=== PATIENT | male | born 1960 | race Caucasian/White ===

== ENCOUNTER 2017-03-11 01:16 | Inpatient (IN) | payer OTHER ==
[2017-03-11] MEDS ORDERED: Nitroglycerin 50mg/D5W Premix 50 MG/250 ML INFUS..BTL IV PRN (06:19)
[2017-03-11] MEDS ORDERED: Albuterol/Ipratropium Neb 3 ML AERS HHN PRN (07:00)
[2017-03-11 07:22] VITALS: BP 151/97
[2017-03-11] MEDS ORDERED: Albuterol Nebulizer 2.5mg/3mL HHN PRN (08:07)
[2017-03-11] MEDS ORDERED: guaiFENesin 200 MG/10 ML UDC PO PRN (08:07)
[2017-03-11] MEDS ORDERED: Morphine Sulfate 2 mg/mL 1mL Syr IVP PRN (08:07)
[2017-03-11] MEDS ORDERED: Ipratropium Neb 0.5 mg/2.5 mL UD IH PRN (08:07)
[2017-03-11] MEDS ORDERED: Maalox 30 mL Cup PO PRN (08:11)
[2017-03-11 08:17] LABS: HEMATOCRIT 42.3 % (41.0-60); HEMOGLOBIN 13.4 gm/dL (12-16); MEAN CELL VOLUME 81.6 fl (80-99); MEAN CORPUSCULAR HEMOGLOBIN 25.8 pg (26.0-30.0); MEAN CORPUSCULAR HGB CONC 31.6 pg (28.0-36.0); MEAN PLATELET VOLUME 9.6 fl; NEUTROPHILE ABSOLUTE 10.2 Th/cmm (1.8-8.0); RED BLOOD COUNT 5.19 Mil/cmm (4.30-5.70); RED CELL DISTRIBUTION WIDTH 13.6 % (11.5-20.0)
[2017-03-11 08:21] LABS: PLATELET COUNT 298 Th/cmm (150-400)
[2017-03-11 08:28] LABS: BUN - UREA NITROGEN 16 mg/dL (7-25); BUN/CREATININE RATIO 22.9; CALCIUM SERUM 9.2 mg/dL (8.6-10.3); CARBON DIOXIDE 33.5 mEq/L (21.0-31.0); CHLORIDE 97 mEq/L (98-107); CREATININE - SERUM 0.7 mg/dL (0.7-1.3); GLUCOSE 313 mg/dL (70-105); POTASSIUM SERUM 4.5 mEq/L (3.5-5.1); SODIUM SERUM 134 mEq/L (136-145)
[2017-03-11 08:37] LABS: TOTAL CELLS COUNTED 100
[2017-03-11 08:38] LABS: BAND NEUTROPHILE 4 % (0-10); NEUTROPHILS 86 % (40-80)
[2017-03-11 08:42] LABS: ALB/GLOB RATIO 1.4 (1.0-1.8); ALKALINE PHOSPHATASE 88 U/L (34-104); ANION GAP 9.6 (7.0-16.0); BILIRUBIN,TOTAL 0.8 mg/dL (0.3-1.0); BUN - UREA NITROGEN 16 mg/dL (7-25); BUN/CREATININE RATIO 22.9; CALCIUM SERUM 9.2 mg/dL (8.6-10.3); CARBON DIOXIDE 32.8 mEq/L (21.0-31.0); CHLORIDE 96 mEq/L (98-107); CREATININE - SERUM 0.7 mg/dL (0.7-1.3); GLUCOSE 310 mg/dL (70-105); MAGNESIUM 1.8 mg/dL (1.9-2.7); POTASSIUM SERUM 4.4 mEq/L (3.5-5.1); SGOT 18 U/L (13-39); SGPT/ALT 32 U/L (7-52); SODIUM SERUM 134 mEq/L (136-145)
[2017-03-11] MEDS: Potassium Chloride 10 mEq ER Tab PO SCH ×2 (09:08→16:57)
--- NOTE | 2017-03-11 09:58 | Diagnostic Imaging Report ---
Portable chest x-ray HISTORY: Shortness of breath The heart is enlarged. No focal pulmonary processes. No hilar or mediastinal abnormalities. IMPRESSION: 1. Cardiomegaly 2. No focal pulmonary processes
[2017-03-11 10:06] LABS: INR 1.05 (0.5-1.4); PROTHROMBIN TIME (TEST) 10.9 SECONDS (9.5-11.5)
--- NOTE | 2017-03-11 10:49 | Internal Medicine Prog Note ---
Internal Medicine Subjective - Subjective Service Date: 03/11/17 ([id number] [facility] ) Internal Medicine Objective - Results Result Diagrams: 03/11/17 07:55 03/11/17 08:06 Recent Labs: Laboratory Last Values WBC 11.0 Th/cmm (4.8-10.8) H D 03/11/17 07:55 RBC 5.19 Mil/cmm (4.30-5.70) 03/11/17 07:55 Hgb 13.4 gm/dL (12-16) 03/11/17 07:55 Hct 42.3 % (41.0-60) 03/11/17 07:55 MCV 81.6 fl (80-99) 03/11/17 07:55 MCH 25.8 pg (26.0-30.0) L 03/11/17 07:55 MCHC Differential 31.6 pg (28.0-36.0) 03/11/17 07:55 RDW 13.6 % (11.5-20.0) 03/11/17 07:55 Plt Count 298 Th/cmm (150-400) D 03/11/17 07:55 MPV 9.6 fl 03/11/17 07:55 Band Neutrophils % 4 % (0-10) 03/11/17 07:55 Neutrophils (Manual) 86 % (40-80) H 03/11/17 07:55 Lymphocytes 7 % (20-50) L 03/11/17 07:55 Monocytes 3 % (2-10) 03/11/17 07:55 PT 10.9 SECONDS (9.5-11.5) 03/11/17 08:07 INR 1.05 (0.5-1.4) 03/11/17 08:07 PTT (Actin FS) 24.7 SECONDS (26.0-38.0) L 03/11/17 08:07 Sodium 134 mEq/L (136-145) L 03/11/17 08:06 Potassium 4.4 mEq/L (3.5-5.1) 03/11/17 08:06 Chloride 96 mEq/L (98-107) L 03/11/17 08:06 Carbon Dioxide 32.8 mEq/L (21.0-31.0) H 03/11/17 08:06 Anion Gap 9.6 (7.0-16.0) 03/11/17 08:06 BUN 16 mg/dL (7-25) 03/11/17 08:06 Creatinine 0.7 mg/dL (0.7-1.3) 03/11/17 08:06 Est GFR ( Amer) > 60.0 ml/min (>90) 03/11/17 08:06 Est GFR (Non-Af Amer) > 60.0 ml/min 03/11/17 08:06 BUN/Creatinine Ratio 22.9 03/11/17 08:06 Glucose 310 mg/dL (70-105) H 03/11/17 08:06 Hemoglobin A1c % 8.1 % (4.0-6.0) H 03/11/17 08:06 Calcium 9.2 mg/dL (8.6-10.3) 03/11/17 08:06 Magnesium 1.8 mg/dL (1.9-2.7) L 03/11/17 08:06 Total Bilirubin 0.8 mg/dL (0.3-1.0) 03/11/17 08:06 AST 18 U/L (13-39) 03/11/17 08:06 ALT 32 U/L (7-52) 03/11/17 08:06 Alkaline Phosphatase 88 U/L (34-104) 03/11/17 08:06 Troponin I 0.05 ng/mL (0.01-0.05) 03/11/17 07:55 B-Natriuretic Peptide 1110.0 pg/mL (5.0-100.0) H 03/11/17 07:55 Total Protein 6.6 gm/dL (6.0-8.3) 03/11/17 08:06 Albumin 3.8 gm/dL (4.2-5.5) L 03/11/17 08:06 Globulin 2.8 gm/dL 03/11/17 08:06 Albumin/Globulin Ratio 1.4 (1.0-1.8) 03/11/17 08:06 TSH 0.47 uIU/ml (0.34-5.60) 03/11/17 08:07 - Physical Exam Vitals and I&O: Vital Signs Temp 97.6 F 03/11/17 08:00 Pulse 109 03/11/17 10:33 Resp 40 03/11/17 10:00 BP 160/104 03/11/17 10:33 Pulse Ox 97 03/11/17 10:00 Intake & Output 03/10/17 03/11/17 03/11/17 18:59 06:59 18:59 Other: Stool Characteristics Soft Formed Active Medications: Current Medications Acetaminophen (Tylenol) 650 mg PO Q4H PRN PRN Reason: Pain Or Fever above 101F Stop: 05/10/17 08:06 Al Hydrox/Mg Hydrox/Simethicone (Maalox) 30 ml PO Q6H PRN PRN Reason: Dyspepsia Stop: 05/10/17 08:10 Albuterol Sulfate (Albuterol 2.5mg/3ml Neb Ud) 2.5 mg HHN Q2HRT PRN PRN Reason: Shortness of Breath or Wheeze Stop: 05/10/17 08:06 Albuterol/Ipratropium (Duoneb Neb) 3 ml HHN Q4H PRN PRN Reason: SOB/WHEEZING Stop: 03/14/17 07:00 Aspirin (Ecotrin) 81 mg PO DAILY [facility] Stop: 05/10/17 08:59 Last Admin: 03/11/17 09:08 Dose: 81 mg Furosemide (Lasix) 40 mg IVP Q12H OSM[facility] Stop: 05/10/17 08:59 Last Admin: 03/11/17 09:08 Dose: 40 mg Guaifenesin (Robitussin) 200 mg PO Q4HR PRN PRN Reason: Cough or Congestion Stop: 05/10/17 08:06 Heparin Sodium (Porcine) (Heparin) 5,000 units SUBQ Q12HR O[facility] Stop: 05/10/17 08:59 Last Admin: 03/11/17 09:08 Dose: 5,000 units Nitroglycerin/Dextrose (Nitroglycerin 50mg/Dextrose 5% Premix) 50 mg in 250 mls @ 6 mls/hr IV TITR PRN; Protocol; 20 MCG/MIN PRN Reason: TO KEEP SBP < 140 Stop: 05/10/17 06:18 Insulin Aspart (Novolog) 0 units SUBQ ACHS OSMIN PRN Reason: Protocol Stop: 05/10/17 11:29 Ipratropium [place] (Atrovent Neb 0.5mg/2.5ml) 0.5 mg IH Q2HRT PRN PRN Reason: Shortness of Breath or Wheeze Stop: 05/10/17 08:06 Lisinopril (Zestril) 10 mg PO DAILY [facility] Stop: 05/10/17 08:59 Last Admin: 03/11/17 10:33 Dose: 10 mg Methylprednisolone Sodium Succinate (Solu-Medrol) 80 mg IVP Q8HR [facility] Stop: 05/10/17 12:59 Metoprolol Tartrate (Lopressor) 50 mg PO BID [facility] Stop: 05/10/17 16:59 Morphine Sulfate (Morphine) 2 mg IVP Q4H PRN PRN Reason: Pain (Severe) Stop: 05/10/17 08:06 Nitroglycerin (Nitrostat) 0.4 mg SL Q5MIN PRN PRN Reason: Chest Pain Stop: 05/10/17 08:06 Ondansetron HCl (Zofran) 4 mg IV Q8H PRN PRN Reason: Nausea / Vomiting Stop: 05/10/17 08:06 Potassium Chloride (Klor-Con) 10 meq PO BID [facility] Stop: 05/10/17 08:59 Last Admin: 03/11/17 09:08 Dose: 10 meq Simvastatin (Zocor) 10 mg PO DAILY [facility] PRN Reason: Protocol Stop: 05/10/17 08:59 Last Admin: 03/11/17 09:08 Dose: 10 mg Zolpidem Tartrate (Ambien) 10 mg PO HS PRN PRN Reason: Insomnia Stop: 05/10/17 08:06 Internal Medicine Assmt/Plan - Assessment Assessment: acute CHF exacerbation acute chest pain tobacco abuse mild protein calorie malnutrition hyponatremia dm-2 hyperlipidemia
[2017-03-11] MEDS: INSULIN ASPART, RECOMBINANT 100 UNITS/ML SUBQ SCH ×3 (11:47→21:24)
[2017-03-11] MEDS: NITROGLYCERIN OINT 2% 1 INCH PACKET TP SCH ×2 (11:47→17:00)
--- NOTE | 2017-03-11 13:36 | History & Physical ---
ADMIT DATE: 03/11/2017 CHIEF COMPLAINT: Shortness of breath and chest pain. HISTORY OF PRESENT ILLNESS: This is a 56-year-old male who is a direct admission from [facility]. According to the patient, he has been having intermittent shortness of breath for a course of 6 months. Just last night, the patient states that his shortness of breath and chest pain was unbearable and for this reason, the patient was brought to [place]. In the ER at [place], the patient was receiving nitroglycerin drip. The patient had a series of troponin and it was a bit elevated at 0.06. The patient also states that he has been having bilateral leg cramping for some time. Upon examination, the patient denies any chest pain or any shortness of breath. For continuation of care, the patient is now here admitted to [facility]. The patient denies any history of congestive heart failure. PAST MEDICAL HISTORY: Hypertension, hyperlipidemia, and type 2 diabetes. SURGICAL HISTORY: None per patient. ALLERGIES: No drug allergies. MEDICATIONS: Albuterol, atenolol, lisinopril, prednisone, and simvastatin. SOCIAL HISTORY: The patient smokes half a pack per day. Denies any illicit drug use. The patient drinks alcohol occasionally. REVIEW OF SYSTEMS: GENERAL: Denies any fevers or any chills. CARDIOVASCULAR: Denies chest pain at this time. GASTROINTESTINAL: Denies nausea, vomiting, or abdominal pain. GENITOURINARY: Denies increased frequency or dysuria. NEUROLOGIC: No headache, seizures, or syncope. All other systems are reviewed by me and are negative. PHYSICAL EXAMINATION: GENERAL: The patient is well developed, well nourished, and in no acute distress. VITAL SIGNS: Temperature 97.6, heart rate 118, blood pressure 180/28, respirations 24, and O2 97%. HEENT: Head is normocephalic and atraumatic. NECK: Supple. No mass. LUNGS: Clear bilaterally. HEART: Regular rhythm. ABDOMEN: Soft and nontender. LABORATORY DATA: WBC 11.0, H and H 13.4 and 42.3, and platelet of 298. Sodium 134, potassium 4.4, chloride 96, CO2 32.8, BUN 16, and creatinine 0.7. BNP of 1110 and albumin of 3.8. DIAGNOSTIC STUDIES: The patient had a chest x-ray done. Impression is no active disease, cardiomegaly. ASSESSMENT: Acute congestive heart failure exacerbation, hypertension, diabetes, obesity, tobacco abuse, hyponatremia, and mild protein-calorie malnutrition. PLAN: The patient to be admitted to the ICU unit. We will get a 2D echocardiogram. We will have a dining room host on the case. We will wean patient off the nitroglycerin drip and have patient on cardiac diet. We will have dietary consult for patient for diet education. Keep patient on IV Lasix. We will add Norvasc into the patient's medications. We will continue to follow this patient. JOB# [id number]
[2017-03-11] MEDS ORDERED: Mag Sulfate 2gm/50mL Premix 2 GM/50 ML BAG IV ONE (14:58)
[2017-03-11 20:42] LABS: URINE BILIRUBIN NEGATIVE (NEGATIVE); URINE BLOOD NEGATIVE (NEGATIVE); URINE GLUCOSE (UA) >=1000 mg/dL (NEGATIVE); URINE KETONE TRACE mg/dL (NEGATIVE); URINE PROTEIN NEGATIVE (NEGATIVE); URINE UROBILINOGEN 0.2 E.U./dL (0.2 - 1.0)
[2017-03-11 20:54] LABS: URINE BACTERIA NONE SEEN /hpf (NONE SEEN); URINE COLOR YELLOW; URINE EPITHELIAL CELLS NONE SEEN /lpf (FEW); URINE RBC NONE SEEN /hpf (0-5); URINE WBC NONE SEEN /hpf (0-5)
--- NOTE | 2017-03-11 21:43 | Consultation ---
DATE OF CONSULTATION: 03/11/2017 PATIENT OF: Dr. Winn. HISTORY OF PRESENT ILLNESS: This is a 56-year-old old male patient who had been complaining of chest pain, shortness of breath. The patient was taken to [facility] where stabilized and transferred to [facility] for insurance reasons. PAST MEDICAL HISTORY: Congestive heart failure, systolic dysfunction, cardiomyopathy, hypertension, diabetes mellitus type 2. FAMILY HISTORY: Unremarkable. SOCIAL HISTORY: No history of smoking, alcohol abuse at the present time. ALLERGIES: None. PHYSICAL EXAMINATION: VITAL SIGNS: Blood pressure 190/100, pulse 70, respirations 20. HEAD: Normocephalic. No lumps or bumps. EYES: Pupils equal, reactive to light. Fundi show AV nicking, sclerae white, conjunctivae pink. NECK: Carotid 2+. Normal upstroke. JVD 10 cm above sternal angle. Thyroid not palpable. Lymph nodes not palpable. CHEST: Shows increased AP diameter. No kyphosis, scoliosis. LUNGS: Bilateral rales. Decreased breath sounds in both the bases. HEART: PMI sixth intercostal space, bilateral to midclavicular line. S1, S2, S3, S4, soft systolic murmur. ABDOMEN: Soft. Liver, spleen not palpable. Hepatojugular reflux positive. Bowel sounds active. RECTAL: Deferred. EXTREMITIES: Peripheral pulses 2+. No pedal edema. CLINICAL IMPRESSION: Congestive heart failure; systolic dysfunction; acute cardiomyopathy, ischemic; uncontrolled hypertension; diabetes mellitus type 2; hypokalemia. PLAN: Start the patient on diuretics preload-afterload reduction. The patient had echocardiogram, which showed ejection fraction of 25%. Left ventricular hypertrophy, left atrial enlargement, mild mitral regurgitation and tricuspid regurgitation. Continue the patient on diuretics, preload afterload reduction. The patient's condition discussed with family at bedside. JOB# [id number]
[2017-03-12] MEDS: NITROGLYCERIN OINT 2% 1 INCH PACKET TP SCH ×4 (00:04→18:08)
[2017-03-12 04:44] LABS: HEMATOCRIT 41.1 % (41.0-60); HEMOGLOBIN 13.3 gm/dL (12-16); MEAN CELL VOLUME 81.5 fl (80-99); MEAN CORPUSCULAR HEMOGLOBIN 26.4 pg (26.0-30.0); MEAN CORPUSCULAR HGB CONC 32.4 pg (28.0-36.0); MEAN PLATELET VOLUME 9.4 fl; NEUTROPHILE ABSOLUTE 18.3 Th/cmm (1.8-8.0); PLATELET COUNT 320 Th/cmm (150-400); RED BLOOD COUNT 5.04 Mil/cmm (4.30-5.70); RED CELL DISTRIBUTION WIDTH 13.4 % (11.5-20.0)
[2017-03-12 04:52] LABS: WHITE BLOOD COUNT 19.4 Th/cmm (4.8-10.8)
[2017-03-12 05:00] LABS: ANION GAP 7.1 (7.0-16.0); BUN - UREA NITROGEN 26 mg/dL (7-25); BUN/CREATININE RATIO 37.1; CALCIUM SERUM 8.9 mg/dL (8.6-10.3); CARBON DIOXIDE 36.7 mEq/L (21.0-31.0); CHLORIDE 96 mEq/L (98-107); CREATININE - SERUM 0.7 mg/dL (0.7-1.3); MAGNESIUM 2.2 mg/dL (1.9-2.7); POTASSIUM SERUM 4.8 mEq/L (3.5-5.1); SODIUM SERUM 135 mEq/L (136-145)
[2017-03-12 05:05] LABS: TOTAL CELLS COUNTED 100
[2017-03-12 05:06] LABS: BAND NEUTROPHILE 3 % (0-10); NEUTROPHILS 94 % (40-80)
[2017-03-12 05:07] LABS: GLUCOSE 309 mg/dL (70-105)
[2017-03-12] MEDS: INSULIN ASPART, RECOMBINANT 100 UNITS/ML SUBQ SCH ×4 (06:42→20:46)
[2017-03-12] MEDS: Potassium Chloride 10 mEq ER Tab PO SCH ×2 (08:38→17:43)
--- NOTE | 2017-03-12 09:05 | Diagnostic Imaging Report ---
CHEST X-RAY: AP view INDICATION: CHF COMPARISON: 03/11/2017 FINDINGS: Exam is limited due to body habitus. Left lower lung zone hazy density is noted. There is also blunting of the right costophrenic angle. Cardiomegaly is noted. IMPRESSION: Left lower lung zone hazy density due to a small layering left effusion. Pneumonia of the left lung base cannot be excluded. Probable small right effusion. No radiographic evidence of [place]olia CHF. Cardiomegaly.
--- NOTE | 2017-03-12 12:26 | Internal Medicine Prog Note ---
Internal Medicine Subjective - Subjective Service Date: 03/12/17 (denies any chest pain ) Patient seen and examined:: with staff Patient is:: awake Per staff patient has:: tolerating meds Internal Medicine Objective - Results Result Diagrams: 03/12/17 04:24 03/12/17 04:24 Recent Labs: Laboratory Last Values WBC 19.4 Th/cmm (4.8-10.8) H D 03/12/17 04:24 RBC 5.04 Mil/cmm (4.30-5.70) 03/12/17 04:24 Hgb 13.3 gm/dL (12-16) 03/12/17 04:24 Hct 41.1 % (41.0-60) 03/12/17 04:24 MCV 81.5 fl (80-99) 03/12/17 04:24 MCH 26.4 pg (26.0-30.0) 03/12/17 04:24 MCHC Differential 32.4 pg (28.0-36.0) 03/12/17 04:24 RDW 13.4 % (11.5-20.0) 03/12/17 04:24 Plt Count 320 Th/cmm (150-400) 03/12/17 04:24 MPV 9.4 fl 03/12/17 04:24 Neutrophils % DRESSED POULTRY GRADER 03/12/17 04:24 Band Neutrophils % 3 % (0-10) 03/12/17 04:24 Lymphocytes % DRESSED POULTRY GRADER 03/12/17 04:24 Monocytes % DRESSED POULTRY GRADER 03/12/17 04:24 Eosinophils % DRESSED POULTRY GRADER 03/12/17 04:24 Basophils % DRESSED POULTRY GRADER 03/12/17 04:24 Neutrophils (Manual) 94 % (40-80) H 03/12/17 04:24 Lymphocytes 3 % (20-50) L 03/12/17 04:24 Monocytes 3 % (2-10) 03/11/17 07:55 PT 10.9 SECONDS (9.5-11.5) 03/11/17 08:07 INR 1.05 (0.5-1.4) 03/11/17 08:07 PTT (Actin FS) 24.7 SECONDS (26.0-38.0) L 03/11/17 08:07 Sodium 135 mEq/L (136-145) L 03/12/17 04:24 Potassium 4.8 mEq/L (3.5-5.1) 03/12/17 04:24 Chloride 96 mEq/L (98-107) L 03/12/17 04:24 Carbon Dioxide 36.7 mEq/L (21.0-31.0) H 03/12/17 04:24 Anion Gap 7.1 (7.0-16.0) 03/12/17 04:24 BUN 26 mg/dL (7-25) H 03/12/17 04:24 Creatinine 0.7 mg/dL (0.7-1.3) 03/12/17 04:24 Est GFR ( Amer) > 60.0 ml/min (>90) 03/12/17 04:24 Est GFR (Non-Af Amer) > 60.0 ml/min 03/12/17 04:24 BUN/Creatinine Ratio 37.1 03/12/17 04:24 Glucose 309 mg/dL (70-105) H D 03/12/17 04:24 POC Glucose 439 MG/DL (70 - 105) H 03/12/17 11:33 Hemoglobin A1c % 8.1 % (4.0-6.0) H 03/11/17 08:06 Calcium 8.9 mg/dL (8.6-10.3) 03/12/17 04:24 Magnesium 2.2 mg/dL (1.9-2.7) 03/12/17 04:24 Total Bilirubin 0.8 mg/dL (0.3-1.0) 03/11/17 08:06 AST 18 U/L (13-39) 03/11/17 08:06 ALT 32 U/L (7-52) 03/11/17 08:06 Alkaline Phosphatase 88 U/L (34-104) 03/11/17 08:06 Troponin I 0.05 ng/mL (0.01-0.05) 03/11/17 07:55 B-Natriuretic Peptide 1110.0 pg/mL (5.0-100.0) H 03/12/17 04:24 Total Protein 6.6 gm/dL (6.0-8.3) 03/11/17 08:06 Albumin 3.8 gm/dL (4.2-5.5) L 03/11/17 08:06 Globulin 2.8 gm/dL 03/11/17 08:06 Albumin/Globulin Ratio 1.4 (1.0-1.8) 03/11/17 08:06 TSH 0.47 uIU/ml (0.34-5.60) 03/11/17 08:07 Urine Source CLEAN C 03/11/17 19:15 Urine Color YELLOW 03/11/17 19:15 Urine Clarity CLEAR (CLEAR) 03/11/17 19:15 Urine pH 6.0 (4.6 - 8.0) 03/11/17 19:15 Ur Specific [place] 1.015 (1.005-1.030) 03/11/17 19:15 Urine Protein NEGATIVE mg/dL (NEGATIVE) 03/11/17 19:15 Urine Glucose (UA) >=1000 mg/dL (NEGATIVE) H 03/11/17 19:15 Urine Ketones TRACE mg/dL (NEGATIVE) 03/11/17 19:15 Urine Blood NEGATIVE (NEGATIVE) 03/11/17 19:15 Urine Nitrate NEGATIVE (NEGATIVE) 03/11/17 19:15 Urine Bilirubin NEGATIVE (NEGATIVE) 03/11/17 19:15 Urine Urobilinogen 0.2 E.U./dL (0.2 - 1.0) 03/11/17 19:15 Ur Leukocyte Esterase NEGATIVE (NEGATIVE) 03/11/17 19:15 Urine RBC NONE SEEN /hpf (0-5) 03/11/17 19:15 Urine WBC NONE SEEN /hpf (0-5) 03/11/17 19:15 Ur Epithelial Cells NONE SEEN /lpf (FEW) 03/11/17 19:15 Urine Bacteria NONE SEEN /hpf (NONE SEEN) 03/11/17 19:15 - Physical Exam Vitals and I&O: Vital Signs Temp 97.9 F 03/12/17 12:00 Pulse 87 03/12/17 12:00 Resp 23 03/12/17 12:00 BP 133/82 03/12/17 12:00 Pulse Ox 95 03/12/17 12:00 Intake & Output 03/11/17 03/12/17 03/12/17 18:59 06:59 18:59 Intake Total 1300 200 Output Total 1750 1900 0 Balance -450 -1700 0 Weight (lbs) 176 lb 175 lb 175 lb Intake: Intake, IV Amount 50 Mag Sulfate 2gm/50mL 50 Premix 2 gm In 50 ml @ 25 mls/hr IV X1 ONE Rx#: [id number] Oral 1250 200 Output: Urine 1750 1900 Stool 0 Other: # Voids 0 # Bowel Movements 0 0 Stool Characteristics Formed Brown Active Medications: Current Medications Acetaminophen (Tylenol) 650 mg PO Q4H PRN PRN Reason: Pain Or Fever above 101F Stop: 05/10/17 08:06 Al Hydrox/Mg Hydrox/Simethicone (Maalox) 30 ml PO Q6H PRN PRN Reason: Dyspepsia Stop: 05/10/17 08:10 Albuterol Sulfate (Albuterol 2.5mg/3ml Neb Ud) 2.5 mg HHN Q2HRT PRN PRN Reason: Shortness of Breath or Wheeze Stop: 05/10/17 08:06 Albuterol/Ipratropium (Duoneb Neb) 3 ml HHN Q4H PRN PRN Reason: SOB/WHEEZING Stop: 03/14/17 07:00 Last Admin: 03/11/17 21:39 Dose: 3 ml Amlodipine Besylate (Norvasc) 10 mg PO DAILY [facility] Stop: 05/11/17 08:59 Last Admin: 03/12/17 08:38 Dose: 10 mg Aspirin (Ecotrin) 81 mg PO DAILY [facility] Stop: 05/10/17 08:59 Last Admin: 03/12/17 08:38 Dose: 81 mg Furosemide (Lasix) 40 mg IVP Q12H O[facility] Stop: 05/10/17 08:59 Last Admin: 03/12/17 08:39 Dose: 40 mg Guaifenesin (Robitussin) 200 mg PO Q4HR PRN PRN Reason: Cough or Congestion Stop: 05/10/17 08:06 Heparin Sodium (Porcine) (Heparin) 5,000 units SUBQ Q12HR [facility] Stop: 05/10/17 08:59 Last Admin: 03/12/17 08:39 Dose: 5,000 units Nitroglycerin/Dextrose (Nitroglycerin 50mg/Dextrose 5% Premix) 50 mg in 250 mls @ 6 mls/hr IV TITR PRN; Protocol; 20 MCG/MIN PRN Reason: TO KEEP SBP < 140 Stop: 05/10/17 06:18 Insulin Aspart (Novolog) 0 units SUBQ ACHS O[facility] PRN Reason: Protocol Stop: 05/10/17 11:29 Last Admin: 03/12/17 11:41 Dose: 10 units Ipratropium [place] (Atrovent Neb 0.5mg/2.5ml) 0.5 mg IH Q2HRT PRN PRN Reason: Shortness of Breath or Wheeze Stop: 05/10/17 08:06 Lisinopril (Zestril) 10 mg PO DAILY [facility] Stop: 05/10/17 08:59 Last Admin: 03/12/17 08:38 Dose: 10 mg Methylprednisolone Sodium Succinate (Solu-Medrol) 80 mg IVP Q8HR [facility] Stop: 05/10/17 12:59 Last Admin: 03/12/17 05:09 Dose: 80 mg Metoprolol Tartrate (Lopressor) 50 mg PO BID [facility] Stop: 05/10/17 16:59 Last Admin: 03/12/17 08:38 Dose: 50 mg Morphine Sulfate (Morphine) 2 mg IVP Q4H PRN PRN Reason: Pain (Severe) Stop: 05/10/17 08:06 Last Admin: 03/12/17 06:39 Dose: 2 mg Nitroglycerin (Nitrostat) 0.4 mg SL Q5MIN PRN PRN Reason: Chest Pain Stop: 05/10/17 08:06 Nitroglycerin (Nitro-Bid) 1 inch TP Q6HR [facility] Stop: 05/10/17 11:59 Last Admin: 03/12/17 11:45 Dose: 1 inch Ondansetron HCl (Zofran) 4 mg IV Q8H PRN PRN Reason: Nausea / Vomiting Stop: 05/10/17 08:06 Potassium Chloride (Klor-Con) 10 meq PO BID [facility] Stop: 05/10/17 08:59 Last Admin: 03/12/17 08:38 Dose: 10 meq Simvastatin (Zocor) 10 mg PO DAILY [facility] PRN Reason: Protocol Stop: 05/10/17 08:59 Last Admin: 03/12/17 08:39 Dose: 10 mg Zolpidem Tartrate (Ambien) 10 mg PO HS PRN PRN Reason: Insomnia Stop: 05/10/17 08:06 General: alert HEENT: NC/AT, PERRLA Neck: Supple Lungs: CTAB Cardiovascular: RRR, Normal S1, Normal S2, without murmur Abdomen: soft, non-tender, non-distended, positive bowel sound Neurological: alert Internal Medicine Assmt/Plan - Assessment Assessment: acute CHF exacerbation leukocytosis acute chest pain tobacco abuse mild protein calorie malnutrition hyponatremia dm-2 hyperlipidemia - Plan Plan: continue with diuretics smoking cessation monitor glucose taper down solumedrol cardiology follow up am labs continue current plan of care Nutritional Asmnt/Malnutr-PDOC - Dietary Evaluation Malnutrition Findings (Please click <Entered> for more info): Nutritional Asmnt/Malnutrition Start: 03/11/17 16: 09 Text: Status: Complete Freq: Document 03/11/17 16:09 [email or web address] (Rec: 03/11/17 16:26 [email or web address]) Nutritional Asmnt/Malnutrition Patient General Information Nutritional Screening High Risk Consult Diagnosis acute CHF exacerbation Pertinent Medical Hx/Surgical Hx HTN, hyperlipidemia, DM Subjective Information Consult received for diabetic. Pt seen lying in bed, Ghanaian speaking. Spoke with pt with help of JACKIE paez. Pt reported good appetite, eats well. Per notes, PO intake 100%. Per H7P, pt smokes half a pack /day, drinks alcohol occasionally Current Diet Order/ Nutrition Support cardiac Pertinent Medications lasix, novolog, kcal Pertinent Labs 03/11 Na 134L, K 4.4, Cl 96L, Glu 310H, POC 391-535 since adm A1C 8.1, Alb 3.8 Nutritional Hx/Data Height 5 ft 8 in Height (Calculated Centimeters) 172.7 Current Weight (lbs) 195 lb Weight (Calculated Kilograms) 88.5 Weight (Calculated Grams) 84770.5 Usual body Weight (lbs) 210 % Usual Body Weight 93 [place] Body Weight 140 % [place] Body Weight 139 Body Mass Index (BMI) 29.6 Weight Status Overweight GI Symptoms GI Symptoms None Difficult in: None Food Allergies No Usual diet at home usually 3 meals a day, cooked at home, no diet restrictions. Skin Integrity/Comment: intact Current %PO Good (75-100%) Estimated Nutritional Goals BEE in Kcals: Using Current wt Kcals Calculated 2215kcal (25kcal/kg) Protein: Using Current wt Protein g/k Protein Calculated 88g Fluid: ml 2215 Nutritional Problem 1. Problem Problem altered nutrition related lab values Etiology hx of DM, imbalanced carbohydrates intake Signs/Symptoms: Glu 310H, POC 391-535 since adm A1C 8.1 Malnutrition Alert Protein-Calorie Malnutrition N/A Is there a minimum of two criteria No selected? Query Text:Check all the applicable criteria. A minimum of two criteria are recommended for diagnosis of either severe or non-severe malnutrition. Intervention/Recommendation Comments 1. Modify diet to [facility] 60gm Cardiac diet. Made RN Dagmar aware and updated diet order. 2. Provided nutrition education about [facility] diet, encourged balanced meal, eat adquate vegetables and protein food. Pt showed understand. 3. Monitor PO intake, wt weekly, labs and skin integrity 4. F/U as moderate risk in 3-5 days, 03/14-03/16 Expected Outcomes/Goals Expected Outcomes/Goals 1. PO intake continue to meet at least 75% of nutritional needs. 2. wt stability, skin to remain intact, blood glucose level to improve
[2017-03-12] MEDS: Insulin Detemir 100 units/mL 10mL Vial SUBQ SCH (12:49)
--- NOTE | 2017-03-12 15:38 | Cardiology ---
03/11/[address] Winn. PROCEDURE: Echocardiogram. M-MODE ECHOCARDIOGRAM: Mitral valve, anterior leaflet of mitral valve shows normal excursion, EF velocity. Posterior leaflet of mitral valve shows normal excursion. Left ventricular posterior wall shows increased thickness, normal excursion. Interventricular septum shows increased thickness, normal excursion, hypertrophy of the left ventricle, ejection fraction of 25%. Left atrium enlarged, 4.2 cm. Aortic root shows normal dimension, normal excursion of aortic leaflets. CONCLUSION: Hypertrophy of the left ventricle, cardiomyopathy, ejection fraction of 25%, left atrial enlargement. Doppler study shows prominent A wave consistent with poor compliance of left ventricle, mild mitral regurgitation, and mild tricuspid regurgitation. [facility]# [id number]
[2017-03-12] MEDS: methylPREDNISolone SS 40 mg Vial IVP SCH (20:47)
[2017-03-13 05:01] LABS: HEMATOCRIT 42.7 % (41.0-60); HEMOGLOBIN 13.6 gm/dL (12-16); MEAN CELL VOLUME 82.6 fl (80-99); MEAN CORPUSCULAR HEMOGLOBIN 26.3 pg (26.0-30.0); MEAN CORPUSCULAR HGB CONC 31.8 pg (28.0-36.0); MEAN PLATELET VOLUME 9.5 fl; PLATELET COUNT 321 Th/cmm (150-400); RED BLOOD COUNT 5.16 Mil/cmm (4.30-5.70); RED CELL DISTRIBUTION WIDTH 13.7 % (11.5-20.0)
[2017-03-13 05:10] LABS: ANION GAP 7.4 (7.0-16.0); BUN - UREA NITROGEN 30 mg/dL (7-25); BUN/CREATININE RATIO 42.9; CALCIUM SERUM 8.8 mg/dL (8.6-10.3); CARBON DIOXIDE 36.3 mEq/L (21.0-31.0); CHLORIDE 96 mEq/L (98-107); CREATININE - SERUM 0.7 mg/dL (0.7-1.3); GLUCOSE 228 mg/dL (70-105); POTASSIUM SERUM 4.7 mEq/L (3.5-5.1); SODIUM SERUM 135 mEq/L (136-145)
[2017-03-13 05:25] LABS: WHITE BLOOD COUNT 21.8 Th/cmm (4.8-10.8)
[2017-03-13] MEDS: NITROGLYCERIN OINT 2% 1 INCH PACKET TP SCH ×3 (06:27→13:12)
[2017-03-13] MEDS: INSULIN ASPART, RECOMBINANT 100 UNITS/ML SUBQ SCH ×2 (06:46→12:13)
[2017-03-13 06:48] LABS: TOTAL CELLS COUNTED 100
[2017-03-13 06:49] LABS: BAND NEUTROPHILE 4 % (0-10); NEUTROPHILS 92 % (40-80)
--- NOTE | 2017-03-13 07:58 | Diagnostic Imaging Report ---
Exam: Chest portable HISTORY: Pneumonia. Portable examination of the chest at 0733 hours reviewed the study compared to prior examination of 03/11/2017. Findings. The study demonstrates cardiomegaly. No acute pulmonic infiltrates or effusions are noted. Bony thorax is intact. Mediastinal structures midline. The costophrenic angles are clear. IMPRESSION: Cardiomegaly no acute disease.
[2017-03-13] MEDS: methylPREDNISolone SS 40 mg Vial IVP SCH (08:23)
[2017-03-13] MEDS: Potassium Chloride 10 mEq ER Tab PO SCH (08:24)
[2017-03-13] MEDS: Insulin Detemir 100 units/mL 10mL Vial SUBQ SCH (08:28)
== END 2017-03-13 14:45 | disposition home or self-care (01) | DRG 292 ==
LOC: TELE 04:08 → ICU 04:19 → TELE 03-13 11:29
PROVIDERS: ADMIT Internal Medicine; ATTEND Internal Medicine
PROC: 5A09457 Assistance with Respiratory Ventilation, 24-96 Consecutive Hours, Continuous Positive Airway Pressure (ICD-10-PCS; principal; 2017-03-11)
DX: I11.0 Hypertensive heart disease with heart failure (principal); E44.1 Mild protein-calorie malnutrition; I08.1 Rheumatic disorders of both mitral and tricuspid valves; E87.1 Hypo-osmolality and hyponatremia; E11.9 Type 2 diabetes mellitus without complications; D72.829 Elevated white blood cell count, unspecified; I50.21 Acute systolic (congestive) heart failure; E66.9 Obesity, unspecified; E78.5 Hyperlipidemia, unspecified; F17.210 Nicotine dependence, cigarettes, uncomplicated; R07.89 Other chest pain; I25.5 Ischemic cardiomyopathy; E87.6 Hypokalemia; Z71.6 Tobacco abuse counseling; Z68.28 Body mass index [BMI] 28.0-28.9, adult
CPT/HCPCS: 36415-UA; 71010-TC; 80048-TC; 80053-TC; 81001-TC; 82947-TC; 82948-90; 83036-90; 83735-TC; 83880-TC; 84443-TC; 84484-TC; 85007-TC; 85027-TC; 85610-TC; 93005; 94660; 94760; J0692; J1644; J1815; J1940; J2270; J2920; J2930; J3475; X3904; Z7610

== ENCOUNTER 2017-09-27 02:02 | Inpatient (IN) | payer OTHER ==
[2017-09-27 02:30] LABS: % BASOPHILS 0.3 % (0.0-2.0); % LYMPHOCYTES 15.6 % (20.0-50.0); % MONOCYTES 6.8 % (2.0-10.0); % NEUTROPHILS 76.3 % (40.0-80.0); EOSINOPHILE ABSOLUTE 0.1 Th/cmm (0.1-0.4); HEMATOCRIT 44.5 % (41.0-60); HEMOGLOBIN 14.6 gm/dL (12-16); LYMPHOCYTE ABSOLUTE 2.2 Th/cmm (1.5-3.0); MEAN CORPUSCULAR HEMOGLOBIN 26.6 pg (26.0-30.0); MEAN CORPUSCULAR HGB CONC 32.8 pg (28.0-36.0); PLATELET COUNT 315 Th/cmm (150-400); RED BLOOD COUNT 5.49 Mil/cmm (4.30-5.70); RED CELL DISTRIBUTION WIDTH 12.7 % (11.5-20.0)
[2017-09-27] MEDS ORDERED: NITROGLYCERIN OINT 2% 1 INCH PACKET TP ONE (02:31)
[2017-09-27 02:33] LABS: WHITE BLOOD COUNT 14.3 Th/cmm (4.8-10.8)
[2017-09-27] MEDS ORDERED: NITROGLYCERIN OINT 2% 1 INCH PACKET TP STA (02:33)
[2017-09-27 02:40] LABS: pH 7.36 (7.35-7.45)
--- NOTE | 2017-09-27 02:40 | ED Physician Chart ---
ED Chief Complaint/HPI - Patient Information Date Seen:: 09/27/17 Time Seen:: 02:05 Chief Complaint:: shortness of breath History of Present Illness:: THIS IS A 56 YO MALE HYPERTENSIVE, DIABETIC AND PATIENT PRESENTS WITH SEVERAL DAYS OF SOB AND WAS ADMITTED TO THIS HOSPITAL FOR CHF LAST YEAR. HE SMOKES DAILY AND TAKE METFORMIN FOR HIS DIABETES BUT NOT EATING RIGHT ACCORDING TO HIS DAUGHTER. HE DENIES CHEST PAIN AND ABDOMINAL PAIN. HE ATE [place] [employer] THIS AFTERNOON. Allergies:: Allergies Allergy/AdvReac Type Severity Reaction Status Date / Time No Known Allergies Allergy Verified 09/27/17 02:10 Vitals:: Vital Signs - 8 hr 09/27/17 09/27/17 02:02 02:33 Temp 98.0 F HR 84 RR 30 BP 159/107 158/110 Historian:: Patient, Family Member (DAUGHTER) Review:: Nurse's Note Reviewed, Old Chart Reviewed ED Review of Systems - Review of Systems General/Constitutional: No fever, No chills, No weight loss, No weakness, No diaphoresis, No edema, No loss of appetite Skin: No skin lesions, No rash, No bruising Head: No headache, No light-headedness Eyes: No loss of vision, No pain, No diplopia ENT: No earache, No nasal drainage, No sore throat, No tinnitus Neck: No neck pain, No swelling, No thyromegaly, No stiffness, No mass noted Cardio Vascular: No chest pain, No palpitations, No PND, No orthopnea, No edema Pulmonary: SOB, No cough, No sputum, No wheezing GI: No nausea, No vomiting, No diarrhea, No pain, No melena, No hematochezia, No constipation, No hematemesis G/U: No dysuria, No frequency, No hematuria Musculoskeletal: No bone or joint pain, No back pain, No muscle pain Endocrine: No polyuria, No polydipsia Psychiatric: No prior psych history, No depression, No anxiety, No suicidal ideation Hematopoietic: No bruising, No lymphadenopathy Allergic/Immuno: No urticaria, No angioedema Neurological: No syncope, No focal symptoms, No weakness, No paresthesia, No headache, No seizure, No dizziness, No confusion, No vertigo ED Past Medical History - Past Medical History Obtainable: Yes Past Medical History: HTN, DM, CHF Family History: None Social History: Smoker, No Alcohol, No Drug Use, Employed Surgical History: None Psychiatricy History: None Medication: Reviewed Family Medical History - Family Member Brother History Unknown: Yes Ethnicity: Living Status: Still Living Hx Family Cancer: No Hx Family Coronary Artery Disease: No Hx Family Congestive Heart Failure: Yes Hx Family Hypertension: Yes Hx Family Stroke: No Hx Family Diabetes: Yes Hx Family Seizures: No Hx Family Dementia: No Hx Family AIDS: No Hx Family HIV: No Hx Family COPD: No Hx Family Hepatitis: Yes Hx Family Psychiatric Problems: No Hx Family Tuberculosis: No ED Physical Exam - Physical Examination General/Constitutional: Awake, Well-developed, well-nourished, Alert, No distress, GCS 15, Non-toxic appearing, Ambulatory Head: Atraumatic Eyes: Lids, conjuctiva normal, PERRL, EOMI Skin: Nl inspection, No rash, No skin lesions, No ecchymosis, Well hydrated, No lymphadenopathy ENMT: External ears, nose nl, Nasal exam nl, Lips, teeth, gums nl Neck: Nontender, Full ROM w/o pain, No JVD, No nuchal rigidity, No bruit, No mass, No stridor Respiratory: Nl effort/Exclusion (INCREASE RATE 36 AND LABORED BREATHING BILATERALLY.), Clear to Auscultation, No Wheeze/Rhonchi/Rales Cardio Vascular: RRR (INCREASE RATE 96 AND SINUS), No murmur, gallop, rubs, NL S1 S2 GI: No tenderness/rebounding/guarding, No organomegaly, No hernia, Normal BS's, Nondistended (ABDOMEN IS DISTENDED), No mass/bruits, No McBurney tenderness : No CVA tenderness Extremities: No tenderness or effusion, Full ROM, normal strength in all extremities, No edema, Normal digits & nails Neuro/Psych: Alert/oriented, DTR's symmetric, Normal sensory exam, Normal motor strength, Judgement/insight normal, Mood normal, Normal gait, No focal deficits Misc: Normal back, No paraspinal tenderness ED Labs/Radiology/EKG Results - Lab Results Results: Laboratory Tests 09/27/17 02:20 WBC 14.3 H RBC 5.49 Hgb 14.6 Hct 44.5 MCV 81.0 MCH 26.6 MCHC Differential 32.8 RDW 12.7 Plt Count 315 MPV 9.0 Neutrophils % 76.3 Lymphocytes % 15.6 L Monocytes % 6.8 Eosinophils % 1.0 Basophils % 0.3 Abnormal Lab Results 09/27/17 09/27/17 09/27/17 02:20 02:20 02:20 WBC 14.3 H RBC 5.49 Hgb 14.6 Hct 44.5 MCV 81.0 MCH 26.6 MCHC Differential 32.8 RDW 12.7 Plt Count 315 MPV 9.0 Neutrophils % 76.3 Lymphocytes % 15.6 L Monocytes % 6.8 Eosinophils % 1.0 Basophils % 0.3 PT 10.5 INR 1.01 PTT (Actin FS) 25.4 L Specimen Source Sample Site pH pCO2 pO2 HCO3 Base Excess O2 Saturation Garth Test Vent Rate Inspired O2 Tidal Volume PEEP Pressure (ins/psv/peep) Critical Value Sodium Potassium Chloride Carbon Dioxide Anion Gap BUN Creatinine Est GFR ( Amer) Est GFR (Non-Af Amer) BUN/Creatinine Ratio Glucose Whole Bld Lactic Acid Calcium Total Bilirubin AST ALT Alkaline Phosphatase Troponin I Total Protein Albumin Globulin Albumin/Globulin Ratio Triglycerides Cholesterol LDL Cholesterol Direct HDL Cholesterol TSH Urine Source CLEAN C Urine Color YELLOW Urine Clarity CLEAR Urine pH 6.5 Ur Specific [place] 1.025 Urine Protein 100 H Urine Glucose (UA) NEGATIVE Urine Ketones NEGATIVE Urine Blood NEGATIVE Urine Nitrate NEGATIVE Urine Bilirubin NEGATIVE Urine Urobilinogen 0.2 Ur Leukocyte Esterase NEGATIVE Urine RBC 0-2 H Urine WBC 0-2 Ur Epithelial Cells OCCASIONAL Urine Bacteria FEW Urine Opiates Screen Urine Methadone Screen Ur Barbiturates Screen Ur Tricyclics Screen Ur Phencyclidine Scrn Amphetamines Screen U Methamphetamines Scrn U Benzodiazepines Scrn U Cocaine Metab Screen U Cannabinoids Screen Ethyl Alcohol 09/27/17 09/27/17 09/27/17 02:20 02:20 02:20 WBC RBC Hgb Hct MCV MCH MCHC Differential RDW Plt Count MPV Neutrophils % Lymphocytes % Monocytes % Eosinophils % Basophils % PT INR PTT (Actin FS) Specimen Source Sample Site pH pCO2 pO2 HCO3 Base Excess O2 Saturation Garth Test Vent Rate Inspired O2 Tidal Volume PEEP Pressure (ins/psv/peep) Critical Value Sodium 136 Potassium 4.9 Chloride 99 Carbon Dioxide 31.7 H Anion Gap 10.2 BUN 18 Creatinine 0.7 Est GFR ( Amer) > 60.0 Est GFR (Non-Af Amer) > 60.0 BUN/Creatinine Ratio 25.7 Glucose 261 H Whole Bld Lactic Acid Calcium 8.8 Total Bilirubin 0.7 AST 60 H ALT 90 H Alkaline Phosphatase 144 H Troponin I 0.04 Total Protein 6.4 Albumin 3.9 L Globulin 2.5 Albumin/Globulin Ratio 1.6 Triglycerides 150 Cholesterol 204 H LDL Cholesterol Direct 160 HDL Cholesterol 35 TSH 1.78 Urine Source Urine Color Urine Clarity Urine pH Ur Specific [place] Urine Protein Urine Glucose (UA) Urine Ketones Urine Blood Urine Nitrate Urine Bilirubin Urine Urobilinogen Ur Leukocyte Esterase Urine RBC Urine WBC Ur Epithelial Cells Urine Bacteria Urine Opiates Screen Urine Methadone Screen Ur Barbiturates Screen Ur Tricyclics Screen Ur Phencyclidine Scrn Amphetamines Screen U Methamphetamines Scrn U Benzodiazepines Scrn U Cocaine Metab Screen U Cannabinoids Screen Ethyl Alcohol < 10 09/27/17 09/27/17 09/27/17 02:20 02:20 02:27 WBC RBC Hgb Hct MCV MCH MCHC Differential RDW Plt Count MPV Neutrophils % Lymphocytes % Monocytes % Eosinophils % Basophils % PT INR PTT (Actin FS) Specimen Source ARTERIAL Sample Site RIGHT RADIAL pH 7.36 pCO2 61.0 H* pO2 53.0 L HCO3 30.3 H Base Excess 7.2 H O2 Saturation 86.0 L Garth Test YES Vent Rate N/A Inspired O2 21 Tidal Volume N/A PEEP N/A Pressure (ins/psv/peep) N/A Critical Value J.YUTANCO Sodium Potassium Chloride Carbon Dioxide Anion Gap BUN Creatinine Est GFR ( Amer) Est GFR (Non-Af Amer) BUN/Creatinine Ratio Glucose Whole Bld Lactic Acid 1.19 Calcium Total Bilirubin AST ALT Alkaline Phosphatase Troponin I Total Protein Albumin Globulin Albumin/Globulin Ratio Triglycerides Cholesterol LDL Cholesterol Direct HDL Cholesterol TSH Urine Source Urine Color Urine Clarity Urine pH Ur Specific [place] Urine Protein Urine Glucose (UA) Urine Ketones Urine Blood Urine Nitrate Urine Bilirubin Urine Urobilinogen Ur Leukocyte Esterase Urine RBC Urine WBC Ur Epithelial Cells Urine Bacteria Urine Opiates Screen NEGATIVE Urine Methadone Screen NEGATIVE Ur Barbiturates Screen NEGATIVE Ur Tricyclics Screen NEGATIVE Ur Phencyclidine Scrn NEGATIVE Amphetamines Screen NEGATIVE U Methamphetamines Scrn POSITIVE H U Benzodiazepines Scrn NEGATIVE U Cocaine Metab Screen NEGATIVE U Cannabinoids Screen NEGATIVE Ethyl Alcohol - Radiology Results Results: CHEST X-RAY = CM AND PLUMONARY EDEMA - EKG Interpretations EKG Time:: 02:12 Rate & Rhythm: RATE=81 SINUS [place]: RIGHT AXIS Comments:: NO ECTOPY ED Assessment - Assessment General Assessment: HYPOXEMIA AND CHF WITH HYPERTENSION ED Septic Shock - . Is Septic Shock (SBP<90, OR Lactate>4 mmol\L) present?: No - <6hrs of presentation: Vital Signs: Vital Signs - 8 hr 09/27/17 09/27/17 02:02 02:33 Temp 98.0 F HR 84 RR 30 BP 159/107 158/110 ED Reassessment (Disposition) - Reassessment Reassessment:: CHF Reassessment Condition:: Improved - Diagnosis Diagnosis:: ACUTE CONGESTIVE HEART FAILURE HYPERTENSION DIABETES MELLITUS - Patient Disposition Discharge/Transfer:: Acute Care w/in this hosp Admitted to:: Telemetry Admitting Medical Physician:: Dimitri Winn Condition at Disposition:: Improved ED Discharge Plan - Patient Disposition Admit/Discharge/Transfer: Acute Care w/in this hosp Condition at Disposition: Improved
[2017-09-27 02:42] LABS: ALLEN TEST YES
[2017-09-27 02:53] LABS: URINE MICROSCOPIC INDICATED? YES; URINE SOURCE CLEAN C
[2017-09-27 03:00] LABS: INR 1.01 (0.5-1.4); PROTHROMBIN TIME (TEST) 10.5 SECONDS (9.5-11.5); URINE BILIRUBIN NEGATIVE (NEGATIVE); URINE BLOOD NEGATIVE (NEGATIVE); URINE CLARITY CLEAR (CLEAR); URINE COLOR YELLOW; URINE GLUCOSE (UA) NEGATIVE (NEGATIVE); URINE KETONE NEGATIVE (NEGATIVE); URINE LEUKOCYTE ESTERASE NEGATIVE (NEGATIVE); URINE NITRATE NEGATIVE (NEGATIVE); URINE PH 6.5 (4.6 - 8.0); URINE PROTEIN 100 mg/dL (NEGATIVE); URINE UROBILINOGEN 0.2 E.U./dL (0.2 - 1.0)
[2017-09-27 03:01] LABS: URINE BACTERIA FEW /hpf (NONE SEEN); URINE EPITHELIAL CELLS OCCASIONAL /lpf (FEW); URINE RBC 0-2 /hpf (0-5); URINE WBC 0-2 /hpf (0-5)
[2017-09-27 03:07] LABS: ALB/GLOB RATIO 1.6 (1.0-1.8); ALBUMIN 3.9 gm/dL (4.2-5.5); ALKALINE PHOSPHATASE 144 U/L (34-104); ANION GAP 10.2 (7.0-16.0); BILIRUBIN,TOTAL 0.7 mg/dL (0.3-1.0); BUN - UREA NITROGEN 18 mg/dL (7-25); CALCIUM SERUM 8.8 mg/dL (8.6-10.3); CARBON DIOXIDE 31.7 mEq/L (21.0-31.0); CHLORIDE 99 mEq/L (98-107); CHOLESTEROL 204 mg/dL (<200); CREATININE - SERUM 0.7 mg/dL (0.7-1.3); GFR AFRICAN-AMERICAN > 60.0 ml/min (>90); GFR NON AFRICAN-AMERICAN > 60.0 ml/min; GLUCOSE 261 mg/dL (70-105); HDL -HIGH DENSITY LIPOPROTEIN 35 mg/dL (23-92); POTASSIUM SERUM 4.9 mEq/L (3.5-5.1); SGOT 60 U/L (13-39); SGPT/ALT 90 U/L (7-52); SODIUM SERUM 136 mEq/L (136-145); TOTAL PROTEIN,SERUM 6.4 gm/dL (6.0-8.3); TRIGLYCERIDES 150 mg/dL (<150)
[2017-09-27 03:12] LABS: AMPHETAMINE URINE NEGATIVE (NEGATIVE); BARBITURATES URINE NEGATIVE (NEGATIVE); BENZODIAZEPINES QUAL URINE NEGATIVE (NEGATIVE); CANNABINOID THC NEGATIVE (NEGATIVE); COCAINE METABOLITE QUAL URINE NEGATIVE (NEGATIVE); METHADONE URINE NEGATIVE (NEGATIVE); METHAMPHETAMINES QUAL URINE POSITIVE (NEGATIVE); OPIATES (MORPHINE) QUAL. URINE NEGATIVE (NEGATIVE); PHENCYCLIDINE (PCP) URINE NEGATIVE (NEGATIVE); TRICYCLICS (TCA) QUAL. URINE NEGATIVE (NEGATIVE)
[2017-09-27] MEDS ORDERED: NITROGLYCERIN OINT 2% 1 INCH PACKET TP SCH (04:00)
[2017-09-27 06:55] VITALS: BP 142/76
[2017-09-27] MEDS ORDERED: Non-Formulary Item 1 EA (Fluticasone/Vilanterol [Breo Ellipta 100-25 Mcg Inh] 1 EACH) IH PRN (07:47)
[2017-09-27] MEDS ORDERED: guaiFENesin 200 MG/10 ML UDC PO PRN (07:50)
[2017-09-27] MEDS ORDERED: Morphine Sulfate 2 mg/mL 1mL Syr IVP PRN (07:50)
[2017-09-27] MEDS ORDERED: Maalox 30 mL Cup PO PRN (07:50)
[2017-09-27] MEDS ORDERED: Albuterol Nebulizer 2.5mg/3mL HHN PRN (07:50)
--- NOTE | 2017-09-27 08:04 | History and Physical ---
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 Pertinent Hx GI: Report: No Pertinent Hx Psych: Report: No Pertinent Hx Musculoskeletal: Report: No Pertinent Hx Family Medical History - Family Member Brother History Unknown: Yes Ethnicity: Living Status: Still Living Hx Family Cancer: No Hx Family Coronary Artery Disease: No Hx Family Congestive Heart Failure: Yes Hx Family Hypertension: Yes Hx Family Stroke: No Hx Family Diabetes: Yes Hx Family Seizures: No Hx Family Dementia: No Hx Family AIDS: No Hx Family HIV: No Hx Family COPD: No Hx Family Hepatitis: Yes Hx Family Psychiatric Problems: No Hx Family Tuberculosis: No Social History Smoke: <1 pack per day Alcohol: Occassional Drugs: Crystal Meth Lives: With Family Domestic Violence: Negative - Medications Home Medications: Home Medication Medication Instructions Recorded Type Albuterol Sulfate [Proair Hfa] 2 inhaler INH Q4HR PRN 01/25/16 History Fluticasone/Vilanterol [Breo 1 each IH DAILY PRN 09/27/17 History Ellipta 100-25 Mcg INH] Lisinopril [Zestril] 20 mg PO DAILY 09/27/17 History Metformin HCl 850 mg PO BID 09/27/17 History Metoprolol Succinate [Toprol Xl] 50 mg PO BID 09/27/17 History Potassium Chloride ER [Klor-Con] 10 meq PO BID 09/27/17 History - Allergies Allergies/Adverse Reactions: Allergies Allergy/AdvReac Type Severity Reaction Status Date / Time No Known Allergies Allergy Verified 09/27/17 02:10 Review of Systems - Review of Systems Constitutional: Report: Weakness Eyes: Report: No Significant ENT: Report: No Significant Respiratory: Report: Shortness of Breath, SOB with Excertion Cardiovascular: Report: Chest Pain, Orthopnea, Paroxysmal Noc. Dyspnea Gastrointestinal: Report: No Significant Genitourinary: Report: No Significant Musculoskeletal: Report: No Significant Skin: Report: No Significant Neurological: Report: No Significant Physical Exam - Physical Exam HEENT: Report: Ears Nose Throat within normal limits Neck: Report: Within normal limits Cardiovascular Systems: Report: +s1/s2 noted, Regular, Rate and Rhythm, Systolic Murmur Respiratory: Report: Wheezing, Crackles Abdomen: Report: Non-tender to palpation Back: Report: Inspection of back is within normal limits. Extremities: Report: Non-tender to palpation. Skin: Report: Color of skin is within normal limits Neuro/Psych: Report: Mood affect is within normal limits, A+Ox3, CN II-XII intact - Lab Results All Lab Results last 24 hours: Laboratory Results - last 24 hr 09/27/17 09/27/17 09/27/17 02:20 02:20 02:20 WBC 14.3 H RBC 5.49 Hgb 14.6 Hct 44.5 MCV 81.0 MCH 26.6 MCHC Differential 32.8 RDW 12.7 Plt Count 315 MPV 9.0 Neutrophils % 76.3 Lymphocytes % 15.6 L Monocytes % 6.8 Eosinophils % 1.0 Basophils % 0.3 PT 10.5 INR 1.01 PTT (Actin FS) 25.4 L Specimen Source Sample Site pH pCO2 pO2 HCO3 Base Excess O2 Saturation Garth Test Vent Rate Inspired O2 Tidal Volume PEEP Pressure (ins/psv/peep) Critical Value Sodium Potassium Chloride Carbon Dioxide Anion Gap BUN Creatinine Est GFR ( Amer) Est GFR (Non-Af Amer) BUN/Creatinine Ratio Glucose POC Glucose Whole Bld Lactic Acid Calcium Total Bilirubin AST ALT Alkaline Phosphatase Troponin I Total Protein Albumin Globulin Albumin/Globulin Ratio Triglycerides Cholesterol LDL Cholesterol Direct HDL Cholesterol TSH Urine Source CLEAN C Urine Color YELLOW Urine Clarity CLEAR Urine pH 6.5 Ur Specific [place] 1.025 Urine Protein 100 H Urine Glucose (UA) NEGATIVE Urine Ketones NEGATIVE Urine Blood NEGATIVE Urine Nitrate NEGATIVE Urine Bilirubin NEGATIVE Urine Urobilinogen 0.2 Ur Leukocyte Esterase NEGATIVE Urine RBC 0-2 H Urine WBC 0-2 Ur Epithelial Cells OCCASIONAL Urine Bacteria FEW Urine Opiates Screen Urine Methadone Screen Ur Barbiturates Screen Ur Tricyclics Screen Ur Phencyclidine Scrn Amphetamines Screen U Methamphetamines Scrn U Benzodiazepines Scrn U Cocaine Metab Screen U Cannabinoids Screen Ethyl Alcohol 09/27/17 09/27/17 09/27/17 02:20 02:20 02:20 WBC RBC Hgb Hct MCV MCH MCHC Differential RDW Plt Count MPV Neutrophils % Lymphocytes % Monocytes % Eosinophils % Basophils % PT INR PTT (Actin FS) Specimen Source Sample Site pH pCO2 pO2 HCO3 Base Excess O2 Saturation Garth Test Vent Rate Inspired O2 Tidal Volume PEEP Pressure (ins/psv/peep) Critical Value Sodium 136 Potassium 4.9 Chloride 99 Carbon Dioxide 31.7 H Anion Gap 10.2 BUN 18 Creatinine 0.7 Est GFR ( Amer) > 60.0 Est GFR (Non-Af Amer) > 60.0 BUN/Creatinine Ratio 25.7 Glucose 261 H POC Glucose Whole Bld Lactic Acid Calcium 8.8 Total Bilirubin 0.7 AST 60 H ALT 90 H Alkaline Phosphatase 144 H Troponin I 0.04 Total Protein 6.4 Albumin 3.9 L Globulin 2.5 Albumin/Globulin Ratio 1.6 Triglycerides 150 Cholesterol 204 H LDL Cholesterol Direct 160 HDL Cholesterol 35 TSH 1.78 Urine Source Urine Color Urine Clarity Urine pH Ur Specific [place] Urine Protein Urine Glucose (UA) Urine Ketones Urine Blood Urine Nitrate Urine Bilirubin Urine Urobilinogen Ur Leukocyte Esterase Urine RBC Urine WBC Ur Epithelial Cells Urine Bacteria Urine Opiates Screen Urine Methadone Screen Ur Barbiturates Screen Ur Tricyclics Screen Ur Phencyclidine Scrn Amphetamines Screen U Methamphetamines Scrn U Benzodiazepines Scrn U Cocaine Metab Screen U Cannabinoids Screen Ethyl Alcohol < 10 09/27/17 09/27/17 09/27/17 02:20 02:20 02:27 WBC RBC Hgb Hct MCV MCH MCHC Differential RDW Plt Count MPV Neutrophils % Lymphocytes % Monocytes % Eosinophils % Basophils % PT INR PTT (Actin FS) Specimen Source ARTERIAL Sample Site RIGHT RADIAL pH 7.36 pCO2 61.0 H* pO2 53.0 L HCO3 30.3 H Base Excess 7.2 H O2 Saturation 86.0 L Garth Test YES Vent Rate N/A Inspired O2 21 Tidal Volume N/A PEEP N/A Pressure (ins/psv/peep) N/A Critical Value J.YUTANCO Sodium Potassium Chloride Carbon Dioxide Anion Gap BUN Creatinine Est GFR ( Amer) Est GFR (Non-Af Amer) BUN/Creatinine Ratio Glucose POC Glucose Whole Bld Lactic Acid 1.19 Calcium Total Bilirubin AST ALT Alkaline Phosphatase Troponin I Total Protein Albumin Globulin Albumin/Globulin Ratio Triglycerides Cholesterol LDL Cholesterol Direct HDL Cholesterol TSH Urine Source Urine Color Urine Clarity Urine pH Ur Specific [place] Urine Protein Urine Glucose (UA) Urine Ketones Urine Blood Urine Nitrate Urine Bilirubin Urine Urobilinogen Ur Leukocyte Esterase Urine RBC Urine WBC Ur Epithelial Cells Urine Bacteria Urine Opiates Screen NEGATIVE Urine Methadone Screen NEGATIVE Ur Barbiturates Screen NEGATIVE Ur Tricyclics Screen NEGATIVE Ur Phencyclidine Scrn NEGATIVE Amphetamines Screen NEGATIVE U Methamphetamines Scrn POSITIVE H U Benzodiazepines Scrn NEGATIVE U Cocaine Metab Screen NEGATIVE U Cannabinoids Screen NEGATIVE Ethyl Alcohol 09/27/17 09/27/17 03:54 07:02 WBC RBC Hgb Hct MCV MCH MCHC Differential RDW Plt Count MPV Neutrophils % Lymphocytes % Monocytes % Eosinophils % Basophils % PT INR PTT (Actin FS) Specimen Source Sample Site pH pCO2 pO2 HCO3 Base Excess O2 Saturation Garth Test Vent Rate Inspired O2 Tidal Volume PEEP Pressure (ins/psv/peep) Critical Value Sodium Potassium Chloride Carbon Dioxide Anion Gap BUN Creatinine Est GFR ( Amer) Est GFR (Non-Af Amer) BUN/Creatinine Ratio Glucose POC Glucose 235 H 192 H Whole Bld Lactic Acid Calcium Total Bilirubin AST ALT Alkaline Phosphatase Troponin I Total Protein Albumin Globulin Albumin/Globulin Ratio Triglycerides Cholesterol LDL Cholesterol Direct HDL Cholesterol TSH Urine Source Urine Color Urine Clarity Urine pH Ur Specific [place] Urine Protein Urine Glucose (UA) Urine Ketones Urine Blood Urine Nitrate Urine Bilirubin Urine Urobilinogen Ur Leukocyte Esterase Urine RBC Urine WBC Ur Epithelial Cells Urine Bacteria Urine Opiates Screen Urine Methadone Screen Ur Barbiturates Screen Ur Tricyclics Screen Ur Phencyclidine Scrn Amphetamines Screen U Methamphetamines Scrn U Benzodiazepines Scrn U Cocaine Metab Screen U Cannabinoids Screen Ethyl Alcohol - Assessment Assessment: - Assessment Assessment: acute chf exac leukocytosis dm cardiomypatht ef 25 HTN ATYPICAL CHEST PAIN OBESITY HYPERCHOLESTEREMIA TOBACCO DEPENDENCY ALCOHOL ABUSE CARDIOMEGALY CONGESTION noncompliance - Plan Plan: 2D ECHO, US DOPPLER BLE CARDIO TO SEE PATIENT TELE MONITORING CBC/BMP IN AM iv abx - Plan Plan: see orders
[2017-09-27] MEDS ORDERED: Budesonide 0.5 Mg/2 mL Ud HHN ONE (08:06)
[2017-09-27] MEDS ORDERED: Albuterol Nebulizer 2.5mg/3mL HHN ONE (08:07)
[2017-09-27] MEDS ORDERED: Ipratropium Neb 0.5 mg/2.5 mL UD HHN ONE (08:07)
[2017-09-27] MEDS: Budesonide 0.5 Mg/2 mL Ud HHN SCH ×2 (08:09→19:47)
[2017-09-27] MEDS: Potassium Chloride 10 mEq ER Tab PO SCH ×2 (09:21→16:49)
[2017-09-27] MEDS: Levofloxacin 500mg/100mL 500 MG/100 ML BAG IV SCH (09:22)
--- NOTE | 2017-09-27 10:22 | Diagnostic Imaging Report ---
Exam: Portable chest x-ray. HISTORY: Shortness of breath. Findings: Portable upright examination of the chest at 0239 hours reviewed compared to the prior study of 03/13/2017 demonstrates cardiomegaly superimposed basilar pneumonia. The costophrenic angles are clear bony thorax is intact. IMPRESSION Cardiomegaly Basilar pneumonia follow-up examination recommended
[2017-09-27] MEDS ORDERED: Albuterol/Ipratropium Neb 3 ML AERS HHN SCH (11:00)
[2017-09-27] MEDS ORDERED: Albuterol Nebulizer 2.5mg/3mL HHN SCH ×2 (11:00→13:00)
[2017-09-27] MEDS ORDERED: Ipratropium Neb 0.5 mg/2.5 mL UD IH SCH (11:00)
[2017-09-27] MEDS: INSULIN ASPART, RECOMBINANT 100 UNITS/ML SUBQ SCH ×3 (11:44→20:42)
[2017-09-27] MEDS: Albuterol/Ipratropium Neb 3 ML AERS HHN SCH ×2 (14:55→19:41)
[2017-09-27 16:47] LABS: A1C % 8.2 % (4.0-6.0)
[2017-09-28 05:11] LABS: MANUAL DIFF REQUIRED? YES; RED CELL DISTRIBUTION WIDTH 12.7 % (11.5-20.0)
[2017-09-28 05:16] LABS: HEMATOCRIT 43.1 % (41.0-60); HEMOGLOBIN 14.3 gm/dL (12-16); MEAN CELL VOLUME 80.3 fl (80-99); MEAN CORPUSCULAR HEMOGLOBIN 26.7 pg (26.0-30.0); MEAN CORPUSCULAR HGB CONC 33.2 pg (28.0-36.0); PLATELET COUNT 312 Th/cmm (150-400); RED BLOOD COUNT 5.36 Mil/cmm (4.30-5.70)
[2017-09-28 05:24] LABS: WHITE BLOOD COUNT 15.3 Th/cmm (4.8-10.8)
[2017-09-28 05:27] LABS: ALB/GLOB RATIO 1.5 (1.0-1.8); ALKALINE PHOSPHATASE 130 U/L (34-104); ANION GAP 11.7 (7.0-16.0); BILIRUBIN,TOTAL 0.6 mg/dL (0.3-1.0); BUN - UREA NITROGEN 23 mg/dL (7-25); CALCIUM SERUM 9.2 mg/dL (8.6-10.3); CARBON DIOXIDE 33.5 mEq/L (21.0-31.0); CHLORIDE 93 mEq/L (98-107); CREATININE - SERUM 0.8 mg/dL (0.7-1.3); GFR AFRICAN-AMERICAN > 60.0 ml/min (>90); GFR NON AFRICAN-AMERICAN > 60.0 ml/min; GLUCOSE 303 mg/dL (70-105); MAGNESIUM 1.9 mg/dL (1.9-2.7); POTASSIUM SERUM 4.2 mEq/L (3.5-5.1); SGOT 37 U/L (13-39); SGPT/ALT 89 U/L (7-52); SODIUM SERUM 134 mEq/L (136-145); TOTAL PROTEIN,SERUM 6.7 gm/dL (6.0-8.3)
[2017-09-28 06:05] LABS: BAND NEUTROPHILE 3 % (0-10); LYMPHOCYTE 6 % (20-50); MONOCYTE 2 % (2-10); NEUTROPHILS 89 % (40-80); TOTAL CELLS COUNTED 100
[2017-09-28] MEDS: Albuterol/Ipratropium Neb 3 ML AERS HHN SCH ×4 (07:41→18:43)
[2017-09-28] MEDS: Budesonide 0.5 Mg/2 mL Ud HHN SCH ×2 (07:53→18:43)
[2017-09-28] MEDS: INSULIN ASPART, RECOMBINANT 100 UNITS/ML SUBQ SCH ×4 (08:07→22:05)
[2017-09-28] MEDS: Potassium Chloride 10 mEq ER Tab PO SCH ×2 (08:15→17:05)
[2017-09-28] MEDS: Levofloxacin 500mg/100mL 500 MG/100 ML BAG IV SCH (08:22)
[2017-09-28] MEDS ORDERED: Probiotic Screen MC PRN (08:30)
--- NOTE | 2017-09-28 08:34 | Diagnostic Imaging Report ---
CHEST X-RAY: AP view INDICATION: Shortness of breath COMPARISON: 09/27/2017 FINDINGS: Mild Congestive changes are seen with mild improvement in right basal infiltrates. Small bilateral effusions are noted. Left basal subsegmental atelectasis versus scarring is noted. Cardiomegaly is noted. IMPRESSION: Mild congestive changes with improving right basal infiltrates. Small bilateral effusions. Cardiomegaly.
[2017-09-28 09:16] LABS: pH 7.43 (7.35-7.45)
[2017-09-28 09:17] LABS: ALLEN TEST P
--- NOTE | 2017-09-28 10:36 | Consultation ---
DATE OF CONSULTATION: 09/27/2017 REFERRING PHYSICIAN: Dr. Winn. Thank you very much for this consultation. HISTORY OF PRESENT ILLNESS: This is a 56-year-old male with history of possible COPD, presents with shortness of breath, cough, congestion, was admitted for further treatment and management. The patient is feeling a little bit better, but still having some congestion and shortness of breath with exertion. PAST MEDICAL HISTORY: As above. SOCIAL HISTORY: History of smoking, a pack lasts him about 3 days. He has been smoking for 40 years, he states. REVIEW OF SYSTEMS: GENERAL: Weakness, fatigue. CARDIOVASCULAR: No chest pain or palpitation. RESPIRATORY: Shortness of breath, cough, congestion. GASTROINTESTINAL: No nausea or vomiting. PHYSICAL EXAMINATION: GENERAL: Awake, alert, not in acute distress. VITAL SIGNS: Temperature is 98.0, pulse 86, respiration is 20, blood pressure ___, saturation is 94% on 2 liters oxygen. HEENT: Atraumatic, normocephalic. Pupils are equal and reactive to light and accommodation. Ears, nose and throat normal. NECK: Supple. No JVD. CHEST: There are decreased breath sounds, few wheezing or rhonchi. HEART: Regular rate and rhythm. No murmurs. ABDOMEN: Soft. EXTREMITIES: No edema. LABORATORY DATA: WBC is 14.3, hemoglobin 14.6, hematocrit 44.5, platelets is 315. ABGs: pH 7.36, pCO2 of 61, pO2 of 53, bicarbonate is 30, saturation 86%. Chest x-ray, right lower lobe infiltrate. IMPRESSION: 1. This is a 56-year-old male with acute respiratory failure and hypercapnia. 2. Chronic obstructive pulmonary disease exacerbation. 3. Pneumonia. PLAN: 1. IV antibiotics. 2. IV Solu-Medrol. 3. BiPAP at night and p.r.n. and follow up ABGs and chest x-ray. I will follow the patient with you. JOB# [id number]
[2017-09-28] MEDS: Lactobacillus Rhamnosus GG 15 Billion CFU CAP.SPRINK PO SCH (10:59)
--- NOTE | 2017-09-28 11:25 | Internal Medicine Prog Note ---
Internal Medicine Subjective - Subjective Service Date: 09/28/17 Patient seen and examined:: with staff Patient is:: awake, verbal Per staff patient has:: tolerating meds Internal Medicine Objective - Results Result Diagrams: 09/28/17 04:30 09/28/17 04:30 Recent Labs: Laboratory Last Values WBC 15.3 Th/cmm (4.8-10.8) H 09/28/17 04:30 RBC 5.36 Mil/cmm (4.30-5.70) 09/28/17 04:30 Hgb 14.3 gm/dL (12-16) 09/28/17 04:30 Hct 43.1 % (41.0-60) 09/28/17 04:30 MCV 80.3 fl (80-99) 09/28/17 04:30 MCH 26.7 pg (26.0-30.0) 09/28/17 04:30 MCHC Differential 33.2 pg (28.0-36.0) 09/28/17 04:30 RDW 12.7 % (11.5-20.0) 09/28/17 04:30 Plt Count 312 Th/cmm (150-400) 09/28/17 04:30 MPV 9.0 fl 09/28/17 04:30 Neutrophils % 76.3 % (40.0-80.0) 09/27/17 02:20 Band Neutrophils % 3 % (0-10) 09/28/17 04:30 Lymphocytes % 15.6 % (20.0-50.0) L 09/27/17 02:20 Monocytes % 6.8 % (2.0-10.0) 09/27/17 02:20 Eosinophils % 1.0 % (0.0-5.0) 09/27/17 02:20 Basophils % 0.3 % (0.0-2.0) 09/27/17 02:20 Neutrophils (Manual) 89 % (40-80) H 09/28/17 04:30 Lymphocytes 6 % (20-50) L 09/28/17 04:30 Monocytes 2 % (2-10) 09/28/17 04:30 PT 10.5 SECONDS (9.5-11.5) 09/27/17 02:20 INR 1.01 (0.5-1.4) 09/27/17 02:20 PTT (Actin FS) 25.4 SECONDS (26.0-38.0) L 09/27/17 02:20 Specimen Source ARTERIAL 09/28/17 08:56 Sample Site Right Radial 09/28/17 08:56 pH 7.43 (7.35-7.45) 09/28/17 08:56 pCO2 55.0 mmHg (35.0-45.0) H 09/28/17 08:56 pO2 66.0 mmHg (80.0-100.0) L 09/28/17 08:56 HCO3 32.0 mEq/L (20.0-26.0) H 09/28/17 08:56 Base Excess 10.3 mEq/L (-3.0-3.0) H 09/28/17 08:56 O2 Saturation 93.0 % (92.0-100.0) 09/28/17 08:56 Garth Test P 09/28/17 08:56 Vent Rate N/A 09/28/17 08:56 Inspired O2 32 09/28/17 08:56 Tidal Volume N/A 09/28/17 08:56 PEEP N/A 09/28/17 08:56 Pressure (ins/psv/peep) N/A 09/28/17 08:56 Critical Value Glo Shah 09/28/17 08:56 Sodium 134 mEq/L (136-145) L 09/28/17 04:30 Potassium 4.2 mEq/L (3.5-5.1) 09/28/17 04:30 Chloride 93 mEq/L (98-107) L 09/28/17 04:30 Carbon Dioxide 33.5 mEq/L (21.0-31.0) H 09/28/17 04:30 Anion Gap 11.7 (7.0-16.0) 09/28/17 04:30 BUN 23 mg/dL (7-25) 09/28/17 04:30 Creatinine 0.8 mg/dL (0.7-1.3) 09/28/17 04:30 Est GFR ( Amer) > 60.0 ml/min (>90) 09/28/17 04:30 Est GFR (Non-Af Amer) > 60.0 ml/min 09/28/17 04:30 BUN/Creatinine Ratio 28.8 09/28/17 04:30 Glucose 303 mg/dL (70-105) H 09/28/17 04:30 POC Glucose 439 MG/DL (70 - 105) H 09/28/17 10:54 Hemoglobin A1c % 8.2 % (4.0-6.0) H 09/27/17 02:20 Whole Bld Lactic Acid 1.19 mmol/L (0.60-1.99) 09/27/17 02:20 Calcium 9.2 mg/dL (8.6-10.3) 09/28/17 04:30 Magnesium 1.9 mg/dL (1.9-2.7) 09/28/17 04:30 Total Bilirubin 0.6 mg/dL (0.3-1.0) 09/28/17 04:30 AST 37 U/L (13-39) 09/28/17 04:30 ALT 89 U/L (7-52) H 09/28/17 04:30 Alkaline Phosphatase 130 U/L (34-104) H 09/28/17 04:30 Ammonia 85 umol/L (16-53) H 09/28/17 04:30 Troponin I 0.04 ng/mL (0.01-0.05) 09/27/17 02:20 B-Natriuretic Peptide 815.0 pg/mL (5.0-100.0) H 09/28/17 04:30 Total Protein 6.7 gm/dL (6.0-8.3) 09/28/17 04:30 Albumin 4.0 gm/dL (4.2-5.5) L 09/28/17 04:30 Globulin 2.7 gm/dL 09/28/17 04:30 Albumin/Globulin Ratio 1.5 (1.0-1.8) 09/28/17 04:30 Triglycerides 150 mg/dL (<150) 09/27/17 02:20 Cholesterol 204 mg/dL (<200) H 09/27/17 02:20 LDL Cholesterol Direct 160 mg/dL (75-193) 09/27/17 02:20 HDL Cholesterol 35 mg/dL (23-92) 09/27/17 02:20 TSH 1.78 uIU/ml (0.34-5.60) 09/27/17 02:20 Urine Source CLEAN C 09/27/17 02:20 Urine Color YELLOW 09/27/17 02:20 Urine Clarity CLEAR (CLEAR) 09/27/17 02:20 Urine pH 6.5 (4.6 - 8.0) 09/27/17 02:20 Ur Specific [place] 1.025 (1.005-1.030) 09/27/17 02:20 Urine Protein 100 mg/dL (NEGATIVE) H 09/27/17 02:20 Urine Glucose (UA) NEGATIVE mg/dL (NEGATIVE) 09/27/17 02:20 Urine Ketones NEGATIVE mg/dL (NEGATIVE) 09/27/17 02:20 Urine Blood NEGATIVE (NEGATIVE) 09/27/17 02:20 Urine Nitrate NEGATIVE (NEGATIVE) 09/27/17 02:20 Urine Bilirubin NEGATIVE (NEGATIVE) 09/27/17 02:20 Urine Urobilinogen 0.2 E.U./dL (0.2 - 1.0) 09/27/17 02:20 Ur Leukocyte Esterase NEGATIVE (NEGATIVE) 09/27/17 02:20 Urine RBC 0-2 /hpf (0-5) H 09/27/17 02:20 Urine WBC 0-2 /hpf (0-5) 09/27/17 02:20 Ur Epithelial Cells OCCASIONAL /lpf (FEW) 09/27/17 02:20 Urine Bacteria FEW /hpf (NONE SEEN) 09/27/17 02:20 Urine Opiates Screen NEGATIVE (NEGATIVE) 09/27/17 02:20 Urine Methadone Screen NEGATIVE (NEGATIVE) 09/27/17 02:20 Ur Barbiturates Screen NEGATIVE (NEGATIVE) 09/27/17 02:20 Ur Tricyclics Screen NEGATIVE (NEGATIVE) 09/27/17 02:20 Ur Phencyclidine Scrn NEGATIVE (NEGATIVE) 09/27/17 02:20 Amphetamines Screen NEGATIVE (NEGATIVE) 09/27/17 02:20 U Methamphetamines Scrn POSITIVE (NEGATIVE) H 09/27/17 02:20 U Benzodiazepines Scrn NEGATIVE (NEGATIVE) 09/27/17 02:20 U Cocaine Metab Screen NEGATIVE (NEGATIVE) 09/27/17 02:20 U Cannabinoids Screen NEGATIVE (NEGATIVE) 09/27/17 02:20 Ethyl Alcohol < 10 mg/dL (0-10) 09/27/17 02:20 - Physical Exam Vitals and I&O: Vital Signs Temp 98.4 F 09/28/17 07:47 Pulse 105 09/28/17 08:15 Resp 20 09/28/17 07:53 BP 159/93 09/28/17 08:15 Pulse Ox 93 09/28/17 07:53 Intake & Output 09/27/17 09/28/17 09/28/17 18:59 06:59 18:59 Intake Total 100 200 100 Balance 100 200 100 Weight (lbs) 214 lb Intake: Intake, IV Amount 100 100 Levofloxacin 500mg/100mL 100 100 500 mg In 100 ml @ 100 mls/hr IV Q24HR [facility] Rx#: [id number] Oral 200 Other: # Voids 3 Weight Source Bedscale Active Medications: Current Medications Acetaminophen (Tylenol) 650 mg PO Q4H PRN PRN Reason: Pain Or Fever above 101 Stop: 11/26/17 07:49 Last Admin: 09/27/17 09:42 Dose: 650 mg Al Hydrox/Mg Hydrox/Simethicone (Maalox) 30 ml PO Q6H PRN PRN Reason: Dyspepsia Stop: 11/26/17 07:49 Albuterol Sulfate (Albuterol 2.5mg/3ml Neb Ud) 2.5 mg HHN Q4HRT PRN PRN Reason: Shortness of Breath Stop: 11/26/17 07:49 Albuterol/Ipratropium (Duoneb Neb) 3 ml HHN Q4HRT [facility] Stop: 11/26/17 14:59 Last Admin: 09/28/17 07:41 Dose: 3 ml Aspirin (Ecotrin) 81 mg PO DAILY [facility] Stop: 11/26/17 08:59 Last Admin: 09/28/17 08:15 Dose: 81 mg Budesonide (Pulmicort) 0.5 mg HHN BIDRT [facility] Stop: 11/26/17 18:59 Last Admin: 09/28/17 07:53 Dose: 0.5 mg Furosemide (Lasix) 40 mg IVP BID [facility] Stop: 11/26/17 08:59 Last Admin: 09/28/17 08:15 Dose: 40 mg Guaifenesin (Robitussin) 200 mg PO Q4H PRN PRN Reason: Cough or Congestion Stop: 11/26/17 07:49 Levofloxacin (Levaquin Pb) 500 mg in 100 mls @ 100 mls/hr IV Q24HR [facility] Stop: 11/26/17 08:59 Last Infusion: 09/28/17 09:20 Dose: Infused Insulin Aspart (Novolog) 0 units SUBQ ACHS [facility]; Protocol Stop: 11/26/17 11:29 Last Admin: 09/28/17 10:59 Dose: 10 unit Lactobacillus Rhamnosus (Culturelle 15b) 1 each PO DAILY [facility] Stop: 11/27/17 08:59 Last Admin: 09/28/17 10:59 Dose: 1 each Lisinopril (Zestril) 20 mg PO DAILY [facility] Stop: 11/26/17 08:59 Last Admin: 09/28/17 08:15 Dose: 20 mg Methylprednisolone Sodium Succinate (Solu-Medrol) 80 mg IVP Q8HR [facility] Stop: 11/26/17 12:59 Last Admin: 09/28/17 04:22 Dose: 80 mg Metoprolol Succinate (Toprol Xl) 50 mg PO BID [facility] Stop: 11/26/17 08:59 Last Admin: 09/28/17 08:15 Dose: 50 mg Miscellaneous (Probiotic Screen) 1 ea MC PRN PRN PRN Reason: PROTOCOL Stop: 11/27/17 08:29 Morphine Sulfate (Morphine) 2 mg IVP Q4H PRN PRN Reason: Pain (Severe) Stop: 11/26/17 07:49 Nitroglycerin (Nitrostat) 0.4 mg SL Q5MIN PRN PRN Reason: Chest Pain Stop: 11/26/17 07:49 Ondansetron HCl (Zofran) 4 mg IV Q8H PRN PRN Reason: Nausea / Vomiting Stop: 11/26/17 07:49 Potassium Chloride (Klor-Con) 10 meq PO BID [facility] Stop: 11/26/17 08:59 Last Admin: 09/28/17 08:15 Dose: 10 meq Zolpidem Tartrate (Ambien) 10 mg PO HS PRN PRN Reason: Insomnia Stop: 11/26/17 07:49 Last Admin: 09/28/17 01:55 Dose: 10 mg General: alert HEENT: NC/AT, PERRLA Neck: Supple Lungs: CTAB Cardiovascular: RRR, Normal S1, Normal S2, without murmur Abdomen: soft, non-distended, positive bowel sound Neurological: alert - Procedures Procedures: Procedures Procedure Code Date ASSISTANCE WITH RESPIRATORY VENTILATION, 24-96 HRS, CPAP [id number] 03/11/17 Internal Medicine Assmt/Plan - Assessment Assessment: acute chf exac leukocytosis dm cardiomypatht ef 25 HTN ATYPICAL CHEST PAIN OBESITY HYPERCHOLESTEREMIA TOBACCO DEPENDENCY ALCOHOL ABUSE CARDIOMEGALY CONGESTION noncompliance - Plan Plan: await for hgba1c level monitor glucose closely. change diet to diabetic follow up labs in am continue accucheck with sliding scale continue current plan of care
[2017-09-28 14:14] LABS: HEP A AB IGM Negative (Negative); HEP B CORE IGM Negative (Negative); HEP B SURFACE AG QL Negative (Negative); HEP C ANTIBODY 0.1 s/co ratio (0.0-0.9)
[2017-09-29 05:22] LABS: HEMATOCRIT 44.1 % (41.0-60); HEMOGLOBIN 14.5 gm/dL (12-16); MANUAL DIFF REQUIRED? YES; MEAN CELL VOLUME 81.2 fl (80-99); MEAN CORPUSCULAR HEMOGLOBIN 26.6 pg (26.0-30.0); MEAN CORPUSCULAR HGB CONC 32.8 pg (28.0-36.0); MEAN PLATELET VOLUME 9.4 fl; PLATELET COUNT 317 Th/cmm (150-400); RED BLOOD COUNT 5.44 Mil/cmm (4.30-5.70); RED CELL DISTRIBUTION WIDTH 12.9 % (11.5-20.0)
[2017-09-29 05:33] LABS: WHITE BLOOD COUNT 22.5 Th/cmm (4.8-10.8)
[2017-09-29 05:37] LABS: ANION GAP 10.4 (7.0-16.0); BUN - UREA NITROGEN 28 mg/dL (7-25); CALCIUM SERUM 9.1 mg/dL (8.6-10.3); CARBON DIOXIDE 36.1 mEq/L (21.0-31.0); CHLORIDE 92 mEq/L (98-107); CREATININE - SERUM 0.9 mg/dL (0.7-1.3); GFR AFRICAN-AMERICAN > 60.0 ml/min (>90); GFR NON AFRICAN-AMERICAN > 60.0 ml/min; POTASSIUM SERUM 4.5 mEq/L (3.5-5.1); SODIUM SERUM 134 mEq/L (136-145)
[2017-09-29 05:54] LABS: GLUCOSE 285 mg/dL (70-105)
[2017-09-29 06:25] LABS: BAND NEUTROPHILE 5 % (0-10); BASOPHIL 0 % (0-3); EOSINOPHIL 0 % (0-5); LYMPHOCYTE 5 % (20-50); MONOCYTE 2 % (2-10); NEUTROPHILS 88 % (40-80); TOTAL CELLS COUNTED 100
[2017-09-29] MEDS: Budesonide 0.5 Mg/2 mL Ud HHN SCH ×2 (07:21→18:34)
[2017-09-29] MEDS: Albuterol/Ipratropium Neb 3 ML AERS HHN SCH ×4 (07:21→18:34)
[2017-09-29] MEDS: INSULIN ASPART, RECOMBINANT 100 UNITS/ML SUBQ SCH ×4 (08:06→21:27)
[2017-09-29] MEDS: Potassium Chloride 10 mEq ER Tab PO SCH ×2 (08:10→17:10)
[2017-09-29] MEDS: Lactobacillus Rhamnosus GG 15 Billion CFU CAP.SPRINK PO SCH (08:11)
[2017-09-29] MEDS: Levofloxacin 500mg/100mL 500 MG/100 ML BAG IV SCH (08:23)
--- NOTE | 2017-09-29 11:34 | Consultation ---
DATE OF CONSULTATION: 09/28/[address] Winn. HISTORY AND PHYSICAL: This 56-year-old male patient who had been complaining of increasing shortness of breath. Following this, the patient was seen in the Emergency Room. The patient was found to have congestive heart failure, acute exacerbation of COPD, pneumonia, and the patient is admitted. No history of PND, orthopnea. PAST MEDICAL HISTORY: The patient has a history of congestive heart failure, diabetes mellitus type 2, obesity, hypertension, hyperlipidemia, nicotine dependence, alcohol dependence, COPD. FAMILY HISTORY: Unremarkable. SOCIAL HISTORY: The patient has a history of smoking and alcohol abuse. ALLERGIES: None. PHYSICAL EXAMINATION: VITAL SIGNS: Blood pressure 130/80, pulse 70, respirations 20. HEAD: Normocephalic. No lumps or bumps. EYES: Pupils equal, reactive to light. Fundi show AV nicking, sclerae white, conjunctivae pink. NECK: Carotid 2+. Normal upstroke. JVD 10 cm above sternal angle. Thyroid not palpable. Lymph nodes not palpable. CHEST: Shows increased AP diameter. No kyphosis, scoliosis. LUNGS: Bilateral rales. Decreased breath sounds both the bases. HEART: PMI sixth intercostal space with lateral to midclavicular line. S1, S2, S3, S4, soft systolic murmur. ABDOMEN: Soft. Liver and spleen not palpable. No organomegaly. Bowel sounds active. NEUROLOGIC: No focal neurological deficit. EXTREMITIES: Peripheral pulses 1+, pedal edema 2+. CLINICAL IMPRESSION: Acute respiratory failure, pneumonia, acute exacerbation of chronic obstructive pulmonary disease, congestive heart failure, systolic dysfunction, acute nonischemic cardiomyopathy secondary to alcohol, hypertension, obesity, hyperlipidemia and nicotine dependence, alcohol dependence, chronic hypoxia, hepatic encephalopathy with ammonia level 85. BNP level 815. The patient's diabetes is out of control. PLAN: We will continue the patient on present management, control diabetes, diuretics preload afterload reduction. Echocardiogram to evaluate for congestive heart failure. The patient's last echocardiogram, ejection fraction 30%. JOB# [id number]
--- NOTE | 2017-09-29 12:27 | Internal Medicine Prog Note ---
Internal Medicine Subjective - Subjective Service Date: 09/29/17 Patient seen and examined:: with staff Patient is:: awake, verbal Per staff patient has:: tolerating meds Internal Medicine Objective - Results Result Diagrams: 09/29/17 04:25 09/29/17 04:25 Recent Labs: Laboratory Last Values WBC 22.5 Th/cmm (4.8-10.8) H* 09/29/17 04:25 RBC 5.44 Mil/cmm (4.30-5.70) 09/29/17 04:25 Hgb 14.5 gm/dL (12-16) 09/29/17 04:25 Hct 44.1 % (41.0-60) 09/29/17 04:25 MCV 81.2 fl (80-99) 09/29/17 04:25 MCH 26.6 pg (26.0-30.0) 09/29/17 04:25 MCHC Differential 32.8 pg (28.0-36.0) 09/29/17 04:25 RDW 12.9 % (11.5-20.0) 09/29/17 04:25 Plt Count 317 Th/cmm (150-400) 09/29/17 04:25 MPV 9.4 fl 09/29/17 04:25 Neutrophils % 76.3 % (40.0-80.0) 09/27/17 02:20 Band Neutrophils % 5 % (0-10) 09/29/17 04:25 Lymphocytes % 15.6 % (20.0-50.0) L 09/27/17 02:20 Monocytes % 6.8 % (2.0-10.0) 09/27/17 02:20 Eosinophils % 1.0 % (0.0-5.0) 09/27/17 02:20 Basophils % 0.3 % (0.0-2.0) 09/27/17 02:20 Neutrophils (Manual) 88 % (40-80) H 09/29/17 04:25 Lymphocytes 5 % (20-50) L 09/29/17 04:25 Monocytes 2 % (2-10) 09/29/17 04:25 Eosinophils 0 % (0-5) 09/29/17 04:25 Basophils 0 % (0-3) 09/29/17 04:25 PT 10.5 SECONDS (9.5-11.5) 09/27/17 02:20 INR 1.01 (0.5-1.4) 09/27/17 02:20 PTT (Actin FS) 25.4 SECONDS (26.0-38.0) L 09/27/17 02:20 Specimen Source ARTERIAL 09/28/17 08:56 Sample Site Right Radial 09/28/17 08:56 pH 7.43 (7.35-7.45) 09/28/17 08:56 pCO2 55.0 mmHg (35.0-45.0) H 09/28/17 08:56 pO2 66.0 mmHg (80.0-100.0) L 09/28/17 08:56 HCO3 32.0 mEq/L (20.0-26.0) H 09/28/17 08:56 Base Excess 10.3 mEq/L (-3.0-3.0) H 09/28/17 08:56 O2 Saturation 93.0 % (92.0-100.0) 09/28/17 08:56 Garth Test P 09/28/17 08:56 Vent Rate N/A 09/28/17 08:56 Inspired O2 32 09/28/17 08:56 Tidal Volume N/A 09/28/17 08:56 PEEP N/A 09/28/17 08:56 Pressure (ins/psv/peep) N/A 09/28/17 08:56 Critical Value Glo Shah 09/28/17 08:56 Sodium 134 mEq/L (136-145) L 09/29/17 04:25 Potassium 4.5 mEq/L (3.5-5.1) 09/29/17 04:25 Chloride 92 mEq/L (98-107) L 09/29/17 04:25 Carbon Dioxide 36.1 mEq/L (21.0-31.0) H 09/29/17 04:25 Anion Gap 10.4 (7.0-16.0) 09/29/17 04:25 BUN 28 mg/dL (7-25) H 09/29/17 04:25 Creatinine 0.9 mg/dL (0.7-1.3) 09/29/17 04:25 Est GFR ( Amer) > 60.0 ml/min (>90) 09/29/17 04:25 Est GFR (Non-Af Amer) > 60.0 ml/min 09/29/17 04:25 BUN/Creatinine Ratio 31.1 09/29/17 04:25 Glucose 285 mg/dL (70-105) H D 09/29/17 04:25 POC Glucose 335 MG/DL (70 - 105) H 09/29/17 11:59 Hemoglobin A1c % 8.2 % (4.0-6.0) H 09/27/17 02:20 Whole Bld Lactic Acid 1.19 mmol/L (0.60-1.99) 09/27/17 02:20 Calcium 9.1 mg/dL (8.6-10.3) 09/29/17 04:25 Magnesium 1.9 mg/dL (1.9-2.7) 09/28/17 04:30 Total Bilirubin 0.6 mg/dL (0.3-1.0) 09/28/17 04:30 AST 37 U/L (13-39) 09/28/17 04:30 ALT 89 U/L (7-52) H 09/28/17 04:30 Alkaline Phosphatase 130 U/L (34-104) H 09/28/17 04:30 Ammonia 85 umol/L (16-53) H 09/28/17 04:30 Troponin I 0.04 ng/mL (0.01-0.05) 09/27/17 02:20 B-Natriuretic Peptide 444.0 pg/mL (5.0-100.0) H 09/29/17 04:25 Total Protein 6.7 gm/dL (6.0-8.3) 09/28/17 04:30 Albumin 4.0 gm/dL (4.2-5.5) L 09/28/17 04:30 Globulin 2.7 gm/dL 09/28/17 04:30 Albumin/Globulin Ratio 1.5 (1.0-1.8) 09/28/17 04:30 Triglycerides 150 mg/dL (<150) 09/27/17 02:20 Cholesterol 204 mg/dL (<200) H 09/27/17 02:20 LDL Cholesterol Direct 160 mg/dL (75-193) 09/27/17 02:20 HDL Cholesterol 35 mg/dL (23-92) 09/27/17 02:20 TSH 1.78 uIU/ml (0.34-5.60) 09/27/17 02:20 Urine Source CLEAN C 09/27/17 02:20 Urine Color YELLOW 09/27/17 02:20 Urine Clarity CLEAR (CLEAR) 09/27/17 02:20 Urine pH 6.5 (4.6 - 8.0) 09/27/17 02:20 Ur Specific [place] 1.025 (1.005-1.030) 09/27/17 02:20 Urine Protein 100 mg/dL (NEGATIVE) H 09/27/17 02:20 Urine Glucose (UA) NEGATIVE mg/dL (NEGATIVE) 09/27/17 02:20 Urine Ketones NEGATIVE mg/dL (NEGATIVE) 09/27/17 02:20 Urine Blood NEGATIVE (NEGATIVE) 09/27/17 02:20 Urine Nitrate NEGATIVE (NEGATIVE) 09/27/17 02:20 Urine Bilirubin NEGATIVE (NEGATIVE) 09/27/17 02:20 Urine Urobilinogen 0.2 E.U./dL (0.2 - 1.0) 09/27/17 02:20 Ur Leukocyte Esterase NEGATIVE (NEGATIVE) 09/27/17 02:20 Urine RBC 0-2 /hpf (0-5) H 09/27/17 02:20 Urine WBC 0-2 /hpf (0-5) 09/27/17 02:20 Ur Epithelial Cells OCCASIONAL /lpf (FEW) 09/27/17 02:20 Urine Bacteria FEW /hpf (NONE SEEN) 09/27/17 02:20 Urine Opiates Screen NEGATIVE (NEGATIVE) 09/27/17 02:20 Urine Methadone Screen NEGATIVE (NEGATIVE) 09/27/17 02:20 Ur Barbiturates Screen NEGATIVE (NEGATIVE) 09/27/17 02:20 Ur Tricyclics Screen NEGATIVE (NEGATIVE) 09/27/17 02:20 Ur Phencyclidine Scrn NEGATIVE (NEGATIVE) 09/27/17 02:20 Amphetamines Screen NEGATIVE (NEGATIVE) 09/27/17 02:20 U Methamphetamines Scrn POSITIVE (NEGATIVE) H 09/27/17 02:20 U Benzodiazepines Scrn NEGATIVE (NEGATIVE) 09/27/17 02:20 U Cocaine Metab Screen NEGATIVE (NEGATIVE) 09/27/17 02:20 U Cannabinoids Screen NEGATIVE (NEGATIVE) 09/27/17 02:20 Ethyl Alcohol < 10 mg/dL (0-10) 09/27/17 02:20 Hepatitis A IgM Ab Negative (Negative) 09/27/17 15:26 Hep Bs Antigen Negative (Negative) 09/27/17 15:26 Hep B Core IgM Ab Negative (Negative) 09/27/17 15:26 Hepatitis C Antibody 0.1 s/co ratio (0.0-0.9) 09/27/17 15:26 - Physical Exam Vitals and I&O: Vital Signs Temp 99.1 F 09/29/17 08:00 Pulse 90 09/29/17 11:23 Resp 20 09/29/17 11:23 BP 145/108 09/29/17 08:14 Pulse Ox 97 09/29/17 11:23 Intake & Output 09/28/17 09/29/17 09/29/17 18:59 06:59 18:59 Intake Total 1150 Balance 1150 Weight (lbs) 214 lb 197 lb 14.4 oz Intake: Intake, IV Amount 100 Levofloxacin 500mg/100mL 100 500 mg In 100 ml @ 100 mls/hr IV Q24HR [facility] Rx#: [id number] Oral 1050 Other: # Voids 1,500 3 # Bowel Movements 0 0 Weight Source Estimated Bedscale Active Medications: Current Medications Acetaminophen (Tylenol) 650 mg PO Q4H PRN PRN Reason: Pain Or Fever above 101 Stop: 11/26/17 07:49 Last Admin: 09/27/17 09:42 Dose: 650 mg Al Hydrox/Mg Hydrox/Simethicone (Maalox) 30 ml PO Q6H PRN PRN Reason: Dyspepsia Stop: 11/26/17 07:49 Albuterol Sulfate (Albuterol 2.5mg/3ml Neb Ud) 2.5 mg HHN Q4HRT PRN PRN Reason: Shortness of Breath Stop: 11/26/17 07:49 Albuterol/Ipratropium (Duoneb Neb) 3 ml HHN Q4HRT [facility] Stop: 11/26/17 14:59 Last Admin: 09/29/17 11:23 Dose: Not Given Aspirin (Ecotrin) 81 mg PO DAILY [facility] Stop: 11/26/17 08:59 Last Admin: 09/29/17 08:10 Dose: 81 mg Budesonide (Pulmicort) 0.5 mg HHN BIDRT [facility] Stop: 11/26/17 18:59 Last Admin: 09/29/17 07:21 Dose: 0.5 mg Furosemide (Lasix) 40 mg IVP BID [facility] Stop: 11/26/17 08:59 Last Admin: 09/29/17 08:14 Dose: 40 mg Glipizide (Glucotrol) 5 mg PO BID [facility] Stop: 11/27/17 16:59 Last Admin: 09/29/17 08:10 Dose: 5 mg Guaifenesin (Robitussin) 200 mg PO Q4H PRN PRN Reason: Cough or Congestion Stop: 11/26/17 07:49 Levofloxacin (Levaquin Pb) 500 mg in 100 mls @ 100 mls/hr IV Q24HR [facility] Stop: 11/26/17 08:59 Last Admin: 09/29/17 08:23 Dose: 100 mls/hr Insulin Aspart (Novolog) 0 units SUBQ ACHS [facility]; Protocol Stop: 11/26/17 11:29 Last Admin: 09/29/17 12:08 Dose: 6 unit Lactobacillus Rhamnosus (Culturelle 15b) 1 each PO DAILY [facility] Stop: 11/27/17 08:59 Last Admin: 09/29/17 08:11 Dose: 1 each Lisinopril (Zestril) 20 mg PO DAILY [facility] Stop: 11/26/17 08:59 Last Admin: 09/29/17 08:09 Dose: 20 mg Methylprednisolone Sodium Succinate (Solu-Medrol) 80 mg IVP Q8HR [facility] Stop: 11/26/17 12:59 Last Admin: 09/29/17 06:02 Dose: 80 mg Metoprolol Succinate (Toprol Xl) 50 mg PO BID [facility] Stop: 11/26/17 08:59 Last Admin: 09/29/17 08:10 Dose: 50 mg Miscellaneous (Probiotic Screen) 1 ea MC PRN PRN PRN Reason: PROTOCOL Stop: 11/27/17 08:29 Morphine Sulfate (Morphine) 2 mg IVP Q4H PRN PRN Reason: Pain (Severe) Stop: 11/26/17 07:49 Nitroglycerin (Nitrostat) 0.4 mg SL Q5MIN PRN PRN Reason: Chest Pain Stop: 11/26/17 07:49 Ondansetron HCl (Zofran) 4 mg IV Q8H PRN PRN Reason: Nausea / Vomiting Stop: 11/26/17 07:49 Potassium Chloride (Klor-Con) 10 meq PO BID [facility] Stop: 11/26/17 08:59 Last Admin: 09/29/17 08:10 Dose: 10 meq Zolpidem Tartrate (Ambien) 10 mg PO HS PRN PRN Reason: Insomnia Stop: 11/26/17 07:49 Last Admin: 09/28/17 01:55 Dose: 10 mg General: alert HEENT: NC/AT, PERRLA Neck: Supple Lungs: CTAB Cardiovascular: RRR, Normal S1, Normal S2, without murmur Abdomen: soft, non-distended, positive bowel sound Neurological: alert - Procedures Procedures: Procedures Procedure Code Date ASSISTANCE WITH RESPIRATORY VENTILATION, 24-96 HRS, CPAP [id number] 03/11/17 Internal Medicine Assmt/Plan - Assessment Assessment: acute chf exac leukocytosis dm cardiomypatht ef 25 HTN ATYPICAL CHEST PAIN OBESITY HYPERCHOLESTEREMIA TOBACCO DEPENDENCY ALCOHOL ABUSE CARDIOMEGALY CONGESTION noncompliance - Plan Plan: taper solumedrol monitor glucose closely. change diet to diabetic follow up labs in am continue accucheck with sliding scale continue current plan of care Nutritional Asmnt/Malnutr-PDOC - Dietary Evaluation Malnutrition Findings (Please click <Entered> for more info): Nutritional Asmnt/Malnutrition Start: 09/28/17 16: 45 Text: Status: Complete Freq: Protocol: Document 09/28/17 16:45 [email or web address] (Rec: 09/28/17 17:10 [id number] [id number]) Nutritional Asmnt/Malnutrition Patient General Information Nutritional Screening High Risk Consult Diagnosis acute CHF exacerbation, HTN uncontrolable Pertinent Medical Hx/Surgical Hx CAD, hyperlipidemia Subjective Information Consult received for elevated BS. Pt seen sitting up in bed at time of visit, speak very few Syriac. SW helped to translate. Pt stated he was hungry, does not eat pork. Per EMR, PO itnake 85-100% Current Diet Order/ Nutrition Support CCHO 45gm Pertinent Medications lasix, glucotrol, novolog, culturelle, levaquin, kcl Pertinent Labs 09/27 glucose 261, A1c 8.2, POC 190-315 09/28 Na 134, Cl 93, glucose 303-458 (increasing), POC 282- 454 Nutritional Hx/Data Height 5 ft 5 in Height (Calculated Centimeters) 165.1 Current Weight (lbs) 214 lb Weight (Calculated Kilograms) 97.1 Weight (Calculated Grams) 14145.8 [place] Body Weight 136 Body Mass Index (BMI) 35.6 Weight Status Obese GI Symptoms GI Symptoms None Last BM none Difficult in: None Skin Integrity/Comment: intact Current %PO Good (75-100%) Estimated Nutritional Goals BEE in Kcals: Adj wt of IBW Calories/Kcals/Kg 25-30 Kcals Calculated 6454-2905 Protein: Adj wt of IBW Protein g/k-1.2 Protein Calculated 71-85 Fluid: ml 7208-0444 Nutritional Problem 1. Problem Problem altered nutrition related labs Etiology endocrine dysfunction Signs/Symptoms: glucose 261-458, A1c 8.2, POC 190-454 Malnutrition Alert Is there a minimum of two criteria No selected? Query Text:Check all the applicable criteria. A minimum of two criteria are recommended for diagnosis of either severe or non-severe malnutrition. Malnutrition Related to Morbid Obesity Malnutrition related to morbid obesity No Intervention/Recommendation Comments 1. Continue with [id number] diet as ordered. MD to adjust insulin for optimal glycemic control. 2. Monitor PO intake, wt, labs and skin integrity 3. F/U as high risk in 2-3 days, 09/30-10/01 Expected Outcomes/Goals Expected Outcomes/Goals 1. PO intake to meet at least 75% of nutritional needs. 2. Wt stability, skin to remain intact, labs to approach WNL.
[2017-09-29] MEDS ORDERED: methylPREDNISolone SS 40 mg Vial IVP SCH (12:30)
[2017-09-29 13:10] LABS: FOLIC ACID 18.8 ng/mL (>3.0)
[2017-09-29] MEDS: methylPREDNISolone SS 40 mg Vial IVP SCH (17:39)
[2017-09-30] MEDS: methylPREDNISolone SS 40 mg Vial IVP SCH (06:16)
[2017-09-30] MEDS: Budesonide 0.5 Mg/2 mL Ud HHN SCH (06:29)
[2017-09-30] MEDS: Albuterol/Ipratropium Neb 3 ML AERS HHN SCH ×3 (06:29→14:06)
[2017-09-30 06:32] LABS: BUN - UREA NITROGEN 30 mg/dL (7-25); CALCIUM SERUM 8.7 mg/dL (8.6-10.3); CARBON DIOXIDE 33.3 mEq/L (21.0-31.0); CHLORIDE 95 mEq/L (98-107); CREATININE - SERUM 0.8 mg/dL (0.7-1.3); GFR AFRICAN-AMERICAN > 60.0 ml/min (>90); GFR NON AFRICAN-AMERICAN > 60.0 ml/min; GLUCOSE 262 mg/dL (70-105); POTASSIUM SERUM 4.3 mEq/L (3.5-5.1); SODIUM SERUM 134 mEq/L (136-145)
[2017-09-30 07:03] LABS: EOSINOPHILE ABSOLUTE 0.1 Th/cmm (0.1-0.4); HEMOGLOBIN 14.9 gm/dL (12-16); LYMPHOCYTE ABSOLUTE 1.5 Th/cmm (1.5-3.0); MEAN CELL VOLUME 80.5 fl (80-99); MEAN CORPUSCULAR HEMOGLOBIN 26.6 pg (26.0-30.0); MEAN CORPUSCULAR HGB CONC 33.1 pg (28.0-36.0); MEAN PLATELET VOLUME 9.2 fl; MONOCYTE ABSOLUTE 1.6 Th/cmm (0.3-1.0); NEUTROPHILE ABSOLUTE 17.7 Th/cmm (1.8-8.0); PLATELET COUNT 302 Th/cmm (150-400); RED BLOOD COUNT 5.59 Mil/cmm (4.30-5.70); RED CELL DISTRIBUTION WIDTH 13.2 % (11.5-20.0)
[2017-09-30 07:11] LABS: % BASOPHILS 0.2 % (0.0-2.0); % EOSINOPHILS 0.3 % (0.0-5.0); % LYMPHOCYTES 7.1 % (20.0-50.0); % MONOCYTES 7.8 % (2.0-10.0); % NEUTROPHILS 84.6 % (40.0-80.0); WHITE BLOOD COUNT 20.9 Th/cmm (4.8-10.8)
[2017-09-30] MEDS: INSULIN ASPART, RECOMBINANT 100 UNITS/ML SUBQ SCH ×2 (08:11→12:23)
[2017-09-30] MEDS: Lactobacillus Rhamnosus GG 15 Billion CFU CAP.SPRINK PO SCH (08:44)
[2017-09-30] MEDS: Potassium Chloride 10 mEq ER Tab PO SCH (08:44)
--- NOTE | 2017-09-30 10:52 | Diagnostic Imaging Report ---
CHEST X-RAY: AP view INDICATION: Shortness of breath COMPARISON: 09/28/2017 FINDINGS: Chronic lung changes are seen with increased left basal linear markings. No focal consolidation identified. Left costophrenic angle is incompletely visualized. Cardiomegaly is noted. IMPRESSION: Chronic lung changes and likely COPD. Left basal linear markings likely due to subsegmental atelectasis versus scarring. No focal airspace consolidation identified. Cardiomegaly.
--- NOTE | 2017-09-30 15:49 | Internal Medicine Prog Note ---
Internal Medicine Subjective - Subjective Service Date: 09/30/17 (DC SUMMARY [id number]) Patient is:: awake, verbal Per staff patient has:: tolerating meds Internal Medicine Objective - Results Result Diagrams: 09/30/17 05:55 09/30/17 05:55 Recent Labs: Laboratory Last Values WBC 20.9 Th/cmm (4.8-10.8) H* 09/30/17 05:55 RBC 5.59 Mil/cmm (4.30-5.70) 09/30/17 05:55 Hgb 14.9 gm/dL (12-16) 09/30/17 05:55 Hct 45.0 % (41.0-60) 09/30/17 05:55 MCV 80.5 fl (80-99) 09/30/17 05:55 MCH 26.6 pg (26.0-30.0) 09/30/17 05:55 MCHC Differential 33.1 pg (28.0-36.0) 09/30/17 05:55 RDW 13.2 % (11.5-20.0) 09/30/17 05:55 Plt Count 302 Th/cmm (150-400) 09/30/17 05:55 MPV 9.2 fl 09/30/17 05:55 Neutrophils % 84.6 % (40.0-80.0) H 09/30/17 05:55 Band Neutrophils % 5 % (0-10) 09/29/17 04:25 Lymphocytes % 7.1 % (20.0-50.0) L 09/30/17 05:55 Monocytes % 7.8 % (2.0-10.0) 09/30/17 05:55 Eosinophils % 0.3 % (0.0-5.0) 09/30/17 05:55 Basophils % 0.2 % (0.0-2.0) 09/30/17 05:55 Neutrophils (Manual) 88 % (40-80) H 09/29/17 04:25 Lymphocytes 5 % (20-50) L 09/29/17 04:25 Monocytes 2 % (2-10) 09/29/17 04:25 Eosinophils 0 % (0-5) 09/29/17 04:25 Basophils 0 % (0-3) 09/29/17 04:25 PT 10.5 SECONDS (9.5-11.5) 09/27/17 02:20 INR 1.01 (0.5-1.4) 09/27/17 02:20 PTT (Actin FS) 25.4 SECONDS (26.0-38.0) L 09/27/17 02:20 Specimen Source ARTERIAL 09/28/17 08:56 Sample Site Right Radial 09/28/17 08:56 pH 7.43 (7.35-7.45) 09/28/17 08:56 pCO2 55.0 mmHg (35.0-45.0) H 09/28/17 08:56 pO2 66.0 mmHg (80.0-100.0) L 09/28/17 08:56 HCO3 32.0 mEq/L (20.0-26.0) H 09/28/17 08:56 Base Excess 10.3 mEq/L (-3.0-3.0) H 09/28/17 08:56 O2 Saturation 93.0 % (92.0-100.0) 09/28/17 08:56 Garth Test P 09/28/17 08:56 Vent Rate N/A 09/28/17 08:56 Inspired O2 32 09/28/17 08:56 Tidal Volume N/A 09/28/17 08:56 PEEP N/A 09/28/17 08:56 Pressure (ins/psv/peep) N/A 09/28/17 08:56 Critical Value Glo Shah 09/28/17 08:56 Sodium 134 mEq/L (136-145) L 09/30/17 05:55 Potassium 4.3 mEq/L (3.5-5.1) 09/30/17 05:55 Chloride 95 mEq/L (98-107) L 09/30/17 05:55 Carbon Dioxide 33.3 mEq/L (21.0-31.0) H 09/30/17 05:55 Anion Gap 10.0 (7.0-16.0) 09/30/17 05:55 BUN 30 mg/dL (7-25) H 09/30/17 05:55 Creatinine 0.8 mg/dL (0.7-1.3) 09/30/17 05:55 Est GFR ( Amer) > 60.0 ml/min (>90) 09/30/17 05:55 Est GFR (Non-Af Amer) > 60.0 ml/min 09/30/17 05:55 BUN/Creatinine Ratio 37.5 09/30/17 05:55 Glucose 262 mg/dL (70-105) H 09/30/17 05:55 POC Glucose 394 MG/DL (70 - 105) H 09/30/17 11:32 Hemoglobin A1c % 8.2 % (4.0-6.0) H 09/27/17 02:20 Whole Bld Lactic Acid 1.19 mmol/L (0.60-1.99) 09/27/17 02:20 Calcium 8.7 mg/dL (8.6-10.3) 09/30/17 05:55 Magnesium 1.9 mg/dL (1.9-2.7) 09/28/17 04:30 Total Bilirubin 0.6 mg/dL (0.3-1.0) 09/28/17 04:30 AST 37 U/L (13-39) 09/28/17 04:30 ALT 89 U/L (7-52) H 09/28/17 04:30 Alkaline Phosphatase 130 U/L (34-104) H 09/28/17 04:30 Ammonia 85 umol/L (16-53) H 09/28/17 04:30 Troponin I 0.04 ng/mL (0.01-0.05) 09/27/17 02:20 B-Natriuretic Peptide 444.0 pg/mL (5.0-100.0) H 09/29/17 04:25 Total Protein 6.7 gm/dL (6.0-8.3) 09/28/17 04:30 Albumin 4.0 gm/dL (4.2-5.5) L 09/28/17 04:30 Globulin 2.7 gm/dL 09/28/17 04:30 Albumin/Globulin Ratio 1.5 (1.0-1.8) 09/28/17 04:30 Triglycerides 150 mg/dL (<150) 09/27/17 02:20 Cholesterol 204 mg/dL (<200) H 09/27/17 02:20 LDL Cholesterol Direct 160 mg/dL (75-193) 09/27/17 02:20 HDL Cholesterol 35 mg/dL (23-92) 09/27/17 02:20 Vitamin B12 >1999 pg/mL (232-1245) H 09/28/17 04:30 Folic Acid 18.8 ng/mL (>3.0) 09/28/17 04:30 TSH 1.78 uIU/ml (0.34-5.60) 09/27/17 02:20 Urine Source CLEAN C 09/27/17 02:20 Urine Color YELLOW 09/27/17 02:20 Urine Clarity CLEAR (CLEAR) 09/27/17 02:20 Urine pH 6.5 (4.6 - 8.0) 09/27/17 02:20 Ur Specific [place] 1.025 (1.005-1.030) 09/27/17 02:20 Urine Protein 100 mg/dL (NEGATIVE) H 09/27/17 02:20 Urine Glucose (UA) NEGATIVE mg/dL (NEGATIVE) 09/27/17 02:20 Urine Ketones NEGATIVE mg/dL (NEGATIVE) 09/27/17 02:20 Urine Blood NEGATIVE (NEGATIVE) 09/27/17 02:20 Urine Nitrate NEGATIVE (NEGATIVE) 09/27/17 02:20 Urine Bilirubin NEGATIVE (NEGATIVE) 09/27/17 02:20 Urine Urobilinogen 0.2 E.U./dL (0.2 - 1.0) 09/27/17 02:20 Ur Leukocyte Esterase NEGATIVE (NEGATIVE) 09/27/17 02:20 Urine RBC 0-2 /hpf (0-5) H 09/27/17 02:20 Urine WBC 0-2 /hpf (0-5) 09/27/17 02:20 Ur Epithelial Cells OCCASIONAL /lpf (FEW) 09/27/17 02:20 Urine Bacteria FEW /hpf (NONE SEEN) 09/27/17 02:20 Urine Opiates Screen NEGATIVE (NEGATIVE) 09/27/17 02:20 Urine Methadone Screen NEGATIVE (NEGATIVE) 09/27/17 02:20 Ur Barbiturates Screen NEGATIVE (NEGATIVE) 09/27/17 02:20 Ur Tricyclics Screen NEGATIVE (NEGATIVE) 09/27/17 02:20 Ur Phencyclidine Scrn NEGATIVE (NEGATIVE) 09/27/17 02:20 Amphetamines Screen NEGATIVE (NEGATIVE) 09/27/17 02:20 U Methamphetamines Scrn POSITIVE (NEGATIVE) H 09/27/17 02:20 U Benzodiazepines Scrn NEGATIVE (NEGATIVE) 09/27/17 02:20 U Cocaine Metab Screen NEGATIVE (NEGATIVE) 09/27/17 02:20 U Cannabinoids Screen NEGATIVE (NEGATIVE) 09/27/17 02:20 Ethyl Alcohol < 10 mg/dL (0-10) 09/27/17 02:20 Hepatitis A IgM Ab Negative (Negative) 09/27/17 15:26 Hep Bs Antigen Negative (Negative) 09/27/17 15:26 Hep B Core IgM Ab Negative (Negative) 09/27/17 15:26 Hepatitis C Antibody 0.1 s/co ratio (0.0-0.9) 09/27/17 15:26 - Physical Exam Vitals and I&O: Vital Signs Temp 96.8 F 09/30/17 13:32 Pulse 76 09/30/17 13:32 Resp 18 09/30/17 13:32 BP 149/94 09/30/17 13:32 Pulse Ox 98 09/30/17 13:32 Intake & Output 09/29/17 09/30/17 09/30/17 18:59 06:59 18:59 Intake Total 50 50 400 Output Total 1100 Balance -1050 50 400 Weight (lbs) 196 lb 196 lb 3.2 oz 196 lb 3.2 oz Intake: Intake, IV Amount 50 50 Cefepime 1 gm In Dextrose 50 50 5% 50 ml @ 100 mls/hr IV Q12H [facility] Rx#:[id number] Oral 400 Output: Urine 1100 Other: # Voids 5 4 4 # Bowel Movements 0 1 1 Weight Source Bedscale Bedscale Bedscale General: alert HEENT: NC/AT, PERRLA Neck: Supple Lungs: CTAB Cardiovascular: RRR, Normal S1, Normal S2, without murmur Abdomen: soft, non-distended, positive bowel sound Neurological: alert - Procedures Procedures: Procedures Procedure Code Date ASSISTANCE WITH RESPIRATORY VENTILATION, 24-96 HRS, CPAP [id number] 03/11/17 Internal Medicine Assmt/Plan - Assessment Assessment: acute chf exac leukocytosis dm cardiomypatht ef 25 HTN ATYPICAL CHEST PAIN OBESITY HYPERCHOLESTEREMIA TOBACCO DEPENDENCY ALCOHOL ABUSE CARDIOMEGALY CONGESTION noncompliance - Plan Plan: taper solumedrol monitor glucose closely. change diet to diabetic follow up labs in am continue accucheck with sliding scale continue current plan of care Nutritional Asmnt/Malnutr-PDOC - Dietary Evaluation Malnutrition Findings (Please click <Entered> for more info): Nutritional Asmnt/Malnutrition Start: 09/28/17 16: 45 Text: Status: Complete Freq: Protocol: Document 09/28/17 16:45 MADHURI (Rec: 09/28/17 17:10 MADHURI [id number]) Nutritional Asmnt/Malnutrition Patient General Information Nutritional Screening High Risk Consult Diagnosis acute CHF exacerbation, HTN uncontrolable Pertinent Medical Hx/Surgical Hx CAD, hyperlipidemia Subjective Information Consult received for elevated BS. Pt seen sitting up in bed at time of visit, speak very few Danish. SW helped to translate. Pt stated he was hungry, does not eat pork. Per EMR, PO itnake 85-100% Current Diet Order/ Nutrition Support CCHO 45gm Pertinent Medications lasix, glucotrol, novolog, culturelle, levaquin, kcl Pertinent Labs 09/27 glucose 261, A1c 8.2, POC 190-315 09/28 Na 134, Cl 93, glucose 303-458 (increasing), POC 282- 454 Nutritional Hx/Data Height 5 ft 5 in Height (Calculated Centimeters) 165.1 Current Weight (lbs) 214 lb Weight (Calculated Kilograms) 97.1 Weight (Calculated Grams) 71091.8 Arnold Body Weight 136 Body Mass Index (BMI) 35.6 Weight Status Obese GI Symptoms GI Symptoms None Last BM none Difficult in: None Skin Integrity/Comment: intact Current %PO Good (75-100%) Estimated Nutritional Goals BEE in Kcals: Adj wt of IBW Calories/Kcals/Kg 25-30 Kcals Calculated 8549-8758 Protein: Adj wt of IBW Protein g/k-1.2 Protein Calculated 71-85 Fluid: ml 6941-0014 Nutritional Problem 1. Problem Problem altered nutrition related labs Etiology endocrine dysfunction Signs/Symptoms: glucose 261-458, A1c 8.2, POC 190-454 Malnutrition Alert Is there a minimum of two criteria No selected? Query Text:Check all the applicable criteria. A minimum of two criteria are recommended for diagnosis of either severe or non-severe malnutrition. Malnutrition Related to Morbid Obesity Malnutrition related to morbid obesity No Intervention/Recommendation Comments 1. Continue with [id number] diet as ordered. MD to adjust insulin for optimal glycemic control. 2. Monitor PO intake, wt, labs and skin integrity 3. F/U as high risk in 2-3 days, 09/30-10/01 Expected Outcomes/Goals Expected Outcomes/Goals 1. PO intake to meet at least 75% of nutritional needs. 2. Wt stability, skin to remain intact, labs to approach WNL.
--- NOTE | 2017-09-30 17:03 | Cardiology ---
09/29/[address] Winn. PROCEDURE: Echocardiogram. M-MODE ECHOCARDIOGRAM: Mitral valve, anterior leaflet of mitral valve shows decreased excursion, EF velocity. Posterior leaflet of mitral valve shows decreased excursion. Left ventricular posterior wall shows increased thickness, decreased excursion. Interventricular septum shows increased thickness, decreased excursion, ejection fraction 40%. Left atrium enlarged at 4.1 cm. Aortic root shows normal dimension, normal excursion of aortic leaflets. CONCLUSION: Hypertrophy of the left ventricle, cardiomyopathy, ejection fraction 40%, left atrial enlargement. 2D ECHO: Long axis view shows enlarged left ventricular cavity with hypertrophy of the left ventricle, ejection fraction 40%. Left atrium enlarged 4.04 cm. Aortic root shows normal dimension, normal excursion of aortic leaflets. Short axis view of mitral valve normal. Short axis view of aortic valve normal. Apical four chamber view shows enlarged left ventricular cavity with hypertrophy of the left ventricle. Left atrium enlarged. Right ventricular cavity, right atrium normal, no pericardial effusion. CONCLUSION: Hypertrophy of the left ventricle. Left atrial enlargement, ejection fraction 40%. Doppler study shows mild mitral regurgitation, mild tricuspid regurgitation, right ventricular systolic pressure 21 mmHg. JOB# [id number]
--- NOTE | 2017-09-30 18:09 | Discharge Summary ---
DATE OF DISCHARGE: 09/30/2017 DISCHARGE DIAGNOSES: Acute CHF exacerbation, which has been treated, leukocytosis, which is improved, type 2 diabetes, cardiomyopathy, ejection fraction of 25%, hypertension, atypical chest pain, which has resolved, obesity, hypercholesterolemia, tobacco dependency, alcohol abuse, cardiomegaly, congestion, which has improved and noncompliance. HISTORY OF PRESENT ILLNESS: This is a 56-year-old male who presented to the ER with a 2-week history of shortness of breath. The patient has not been compliant with medications per family members. PHYSICAL EXAMINATION: GENERAL: The patient is well-developed, well-nourished, no acute distress. VITAL SIGNS: Stable. HEENT: Normocephalic, atraumatic. NECK: Supple. No mass. LUNGS: Clear bilaterally. ABDOMEN: Soft, nontender. HOSPITAL COURSE: During the hospital stay, the patient was admitted to the telemetry unit. The patient was kept on empiric IV antibiotics of Maxipime 1 gram IV every 12 hours. The patient was on a sliding scale or Accu-Chek. The patient was also on Solu-Medrol as well. The patient was seen by assistant producer due to the CHF exacerbation. The patient did not have any fevers and the patient was educated to comply with his medications. The patient also had a Pulmonology consultation as well. The patient is stable. CONDITION UPON DISCHARGE: Fair. DISPOSITION: The patient is going home. Educated the patient to follow up with PCP upon discharge. JOB# [id number]
== END 2017-09-30 14:25 | disposition home or self-care (01) | DRG 291 ==
LOC: ER 02:02 → TELE 03:32
PROVIDERS: ADMIT Internal Medicine; ATTEND Internal Medicine
DX: I11.0 Hypertensive heart disease with heart failure (principal); J18.9 Pneumonia, unspecified organism; J96.01 Acute respiratory failure with hypoxia; J96.02 Acute respiratory failure with hypercapnia; J44.1 Chronic obstructive pulmonary disease with (acute) exacerbation; J44.0 Chronic obstructive pulmonary disease with (acute) lower respiratory infection; I50.23 Acute on chronic systolic (congestive) heart failure; I42.6 Alcoholic cardiomyopathy; E78.5 Hyperlipidemia, unspecified; E66.9 Obesity, unspecified; K72.90 Hepatic failure, unspecified without coma; F17.210 Nicotine dependence, cigarettes, uncomplicated; I25.10 Atherosclerotic heart disease of native coronary artery without angina pectoris; E78.00 Pure hypercholesterolemia, unspecified; F10.20 Alcohol dependence, uncomplicated; E11.9 Type 2 diabetes mellitus without complications; Z79.84 Long term (current) use of oral hypoglycemic drugs; Z91.14 Patient's other noncompliance with medication regimen
CPT/HCPCS: 36415-UA; 36600-90; 71045-TC; 80048-TC; 80053-TC; 80061-TC; 80074-90; 80307; 80320-TC; 81001-TC; 82140-TC; 82607-90; 82746-90; 82803-TC; 82947-TC; 82948-90; 83036-90; 83605; 83735-TC; 83880-TC; 84443-TC; 84484-TC; 85007-TC; 85025-TC; 85027-TC; 85610-TC; 85730-TC; 90779; 93005; 94640; 94760; 96374; J0692; J1815; J1940; J1956; J2920; J2930; J7613; Z7610